=== PATIENT | male | born 1960 | race Caucasian/White ===

== ENCOUNTER 2016-11-15 13:10 | Inpatient (IN) | payer OTHER ==
[2016-11-15 13:29] VITALS: BMI 28.6
[2016-11-15] MEDS ORDERED: FOLIC ACID INJECTION - 1 MG, THIAMINE HCL 100 MG, MULTIVIT INJECTION ADULT 10 ML in SOD... IVPB ONE (13:38)
[2016-11-15] MEDS ORDERED: dilTIAZem HCL 50 MG/10 ML - 10 ML VIAL IVPUSH ONE (13:42)
[2016-11-15] MEDS ORDERED: dilTIAZem HCL 125 MG/25 ML - 25 ML VIAL ONE (13:56)
--- NOTE | 2016-11-15 13:56 | PDOC ---
History of Present Illness <Pavan Stoll - Last Filed: 11/15/16 17:45> <Amna Rivera - Last Filed: 11/15/16 18:26> - General Chief Complaint: Palpitations Stated Complaint: HEART RACING/SHORTNESS OF BREATH - History of Present Illness Initial Comments: 11/15/16 13:57 The patient is a 56 year old male who is a chronic alcoholic who presents to the ED complaining of chest discomfort and palpitations since this morning. He denies any significant chest pain. The patient reports he came to the ED for further evaluation. The patient reports he drinks alcohol daily. The patient denies nausea, vomiting, diarrhea The patient denies shoulder pain, jaw pain, diaphoresis Allergies: NKDA (Amna Rivera) Past History - Past Medical History Cardiac Disorders: (MURMUR) - Surgical History Appendectomy: Yes Cardiac Surgery: Yes - Psycho/Social/Smoking Cessation Hx Suicidal Ideation: No Smoking History: Never smoked Information on smoking cessation initiated: No <Pavan Stoll - Last Filed: 11/15/16 17:45> <Amna Rivera - Last Filed: 11/15/16 18:26> - Past Medical History Allergies/Adverse Reactions: Allergies Allergy/AdvReac Type Severity Reaction Status Date / Time No Known Allergies Allergy Verified 11/15/16 13:29 Home Medications: Ambulatory Orders NK [No Known Home Medication] 11/15/16 Review of Systems <Pavan Stoll - Last Filed: 11/15/16 17:45> - Review of Systems Able to Perform ROS?: Yes <Amna Rivera - Last Filed: 11/15/16 18:26> - Review of Systems Comments:: 11/15/16 13:58 CONSTITUTIONAL: Absent: fever, chills, diaphoresis, generalized weakness, malaise, loss of appetite HEENT: Absent: rhinorrhea, nasal congestion, throat pain, throat swelling, difficulty swallowing, mouth swelling, ear pain, eye pain, visual Changes CARDIOVASCULAR: +Chest discomfort, palpitations. Absent: chest pain, syncope, palpitations, irregular heart rate, lightheadedness, peripheral edema RESPIRATORY: Absent: cough, shortness of breath, dyspnea with exertion, orthopnea, wheezing, stridor, hemoptysis GASTROINTESTINAL: Absent: abdominal pain, abdominal distension, nausea, vomiting, diarrhea, constipation, melena, hematochezia GENITOURINARY: Absent: dysuria, frequency, urgency, hesitancy, hematuria, flank pain, genital pain MUSCULOSKELETAL: Absent: myalgia, arthralgia, joint swelling SKIN: Absent: rash, itching, pallor HEMATOLOGIC/IMMUNOLOGIC: Absent: easy bleeding, easy bruising, lymphadenopathy, frequent infections ENDOCRINE: Absent: unexplained weight gain, unexplained weight loss, heat intolerance, cold intolerance NEUROLOGIC: Absent: headache, focal weakness or paresthesias, dizziness, unsteady gait, seizure, mental status changes, bladder or bowel incontinence PSYCHIATRIC: Absent: anxiety, depression, suicidal or homicidal ideation, hallucinations. (Amna Rivera) *Physical Exam <Pavan Stoll - Last Filed: 11/15/16 17:45> <Amna Rivera - Last Filed: 11/15/16 18:26> - Vital Signs Last Vital Signs Temp Pulse Resp BP Pulse Ox 98 F 112 H 18 98/64 97 11/15/16 13:27 11/15/16 15:00 11/15/16 15:00 11/15/16 15:00 11/15/16 13:27 - Physical Exam Comments: 11/15/16 13:58 GENERAL: Well developed, well nourished. Awake and alert. In no acute distress. HEENT: Normocephalic, atraumatic. PERRLA, EOMI. No conjunctival pallor. Sclera are non- icteric. Moist mucous membranes. Oropharynx is clear. NECK: Supple. Full ROM. No JVD. Carotid pulses 2+ and symmetric, without bruits. No thyromegaly. No lymphadenopathy. CARDIOVASCULAR: +Irregularly irregular, tachycardia. Distal pulses are 2+ and symmetric. PULMONARY: No evidence of respiratory distress. Lungs clear to auscultation bilaterally. No wheezing, rales or rhonchi. ABDOMINAL: Soft. Non-tender. Non-distended. No rebound or guarding. No organomegaly. Normoactive bowel sounds. MUSCULOSKELETAL Normal range of motion at all joints. No bony deformities or tenderness. No CVA tenderness. EXTREMITIES: No cyanosis. No clubbing. No edema. No calf tenderness. SKIN: Warm and dry. Normal capillary refill. No rashes. No jaundice. NEUROLOGICAL: Alert, awake, appropriate. Cranial nerves 2-12 intact. No deficits to light touch and temperature in face, upper extremities and lower extremities. No motor deficits in the in face, upper extremities and lower extremities. Normoreflexic in the upper and lower extremities. Normal speech. Toes are downgoing bilaterally. Gait is normal without ataxia. PSYCHIATRIC: Cooperative. Good eye contact. Appropriate mood and affect. (Amna Rivera) ED Treatment Course - LABORATORY CBC & Chemistry Diagram: 11/15/16 13:50 11/15/16 13:50 <Pavan Stoll - Last Filed: 11/15/16 17:45> - LABORATORY CBC & Chemistry Diagram: 11/15/16 13:50 11/15/16 13:50 <Amna Rivera - Last Filed: 11/15/16 18:26> - ADDITIONAL ORDERS Additional order review: Laboratory Results 11/15/16 11/15/16 11/15/16 13:50 13:50 13:50 INR 1.23 H PTT (Actin FS) 33.1 Sodium Potassium Chloride Carbon Dioxide Anion Gap BUN Creatinine Creat Clearance w eGFR Random Glucose Calcium Total Bilirubin AST ALT Alkaline Phosphatase Creatine Kinase Cancelled Troponin I Cancelled Total Protein Albumin Alcohol, Quantitative < 5.0 11/15/16 13:50 INR PTT (Actin FS) Sodium 140 Potassium 4.2 Chloride 105 Carbon Dioxide 26 Anion Gap 9 BUN 12 Creatinine 1.2 Creat Clearance w eGFR > 60 Random Glucose 135 H Calcium 8.7 Total Bilirubin 0.7 AST 20 ALT 56 Alkaline Phosphatase 79 Creatine Kinase 85 Troponin I < 0.02 Total Protein 7.8 Albumin 3.8 Alcohol, Quantitative 11/15/16 13:50 RBC 4.71 MCV 93.8 MCHC 33.8 RDW 13.7 MPV 9.5 Neutrophils % 51.2 Lymphocytes % 31.9 Monocytes % 15.8 H Eosinophils % 0.5 Basophils % 0.6 - RADIOLOGY Radiograph Interpretation: 11/15/16 18:25 Chest X-Ray There are no prior studies for comparison. There is a prominent knob, prominent hilar markings and large heart. There is no sign of infiltrate or failure. The left costophrenic angle is not fully visualized. The bones and soft tissues are intact. The right angle is sharp. Impression: Large heart. No acute pathology. Slight hilar prominence. Reported By: Wilmer Shaffer MD 11/15/16 [id number] (Amna Rivera) - Medications Given in the ED: ED Medications Discontinued Medications Generic Name Dose Route Start Last Admin Trade Name Delmer PRN Reason Stop Dose Admin Diltiazem HCl 20 mg 11/15/16 13:42 11/15/16 14:01 Cardizem Injection - IVPUSH 11/15/16 13:43 20 mg ONCE ONE Administration Diltiazem HCl 60 mg 11/15/16 15:18 11/15/16 15:27 Cardizem - PO 11/15/16 15:19 60 mg ONCE ONE Administration Folic Acid 1 mg/ Thiamine HCl 1,000 mls @ 125 mls/hr 11/15/16 13:38 11/15/16 14 :46 100 mg/ Multivitamins/Minerals IVPB 11/15/16 21:37 125 mls/hr 10 ml/ Sodium Chloride ONCE ONE Administration *DC/Admit/Observation/Transfer - Discharge Dispostion Admit: Yes <Pavan Stoll - Last Filed: 11/15/16 17:45> <Amna Rivera - Last Filed: 11/15/16 18:26> Diagnosis at time of Disposition: New onset atrial fibrillation - Discharge Dispostion Condition at time of disposition: Stable - Attestations Scribe Attestion: 11/15/16 13:58 Documentation prepared by Amna Rivera, acting as nuclear medicine medical director for Pavan Stoll MD (Amna Rivera)
[2016-11-15 14:03] LABS: BASOPHIL 0.6 % (0-2.0); EOSINOPHIL 0.5 % (0-4.5); MCH 31.7 pg (25.7-33.7); MCHC 33.8 g/dl (32.0-35.9); MEAN CELL VOLUME 93.8 fl (80-96); MEAN PLT VOLUME 9.5 fl (7.5-11.1); NEUTROPHILS 51.2 % (42.8-82.8); PLATELET COUNT 167 K/MM3 (134-434); RDW 13.7 % (11.9-15.9); WHITE BLOOD COUNT 6.7 K/mm3 (4.0-10.0)
[2016-11-15 14:16] LABS: INR 1.23 (0.82-1.09); PROTHROMBIN TIME (PATIENT) 13.6 SEC (9.98-11.88)
[2016-11-15 14:18] LABS: ACTIVATED PTT 33.1 SECONDS (26.9-34.4)
[2016-11-15 14:28] LABS: ALBUMIN 3.8 g/dl (3.4-5.0); ANION GAP 9 (8-16); BILIRUBIN,TOTAL 0.7 mg/dL (0.2-1.0); CALCIUM 8.7 mg/dL (8.5-10.1); CO2 26 mmol/L (21-32); CREATININE 1.2 mg/dL (0.7-1.3); GLUCOSE,RANDOM 135 mg/dL (74-106); SGOT/AST 20 U/L (15-37); SGPT/ALT 56 U/L (12-78); TOT PROT 7.8 g/dl (6.4-8.2)
[2016-11-15 14:30] LABS: ALK PHOS 79 U/L (45-117); TROPONIN I < 0.02 ng/ml (0.00-0.05)
[2016-11-15] MEDS ORDERED: dilTIAZem HCL 60 MG TABLET (FP) PO ONE (15:18)
[2016-11-15] MEDS ORDERED: dilTIAZem HCL 60 MG TABLET (FP) ONE (15:25)
--- NOTE | 2016-11-15 16:23 | HP ---
Addendum entered and electronically signed by Tr Lang RES 11/15/16 17:40 : CHIEF COMPLAINT: palpitations PCP: Dr. Marie HISTORY OF PRESENT ILLNESS: 56 y/o M with PMH of open heart surgery at age 7 presents to ER with c/o first time palpitations and heart racing which started this AM. Pt woke up to urinate and felt his heart racing and felt palpitations. Pt denies any CP, chest pressure, abd pain, N/V/F/C, radiating pain to arms. Pt felt short of breath walking into ER and did feel somewhat faint this AM when he had the palpitations but denies LOC. Tried taking muscle relaxant this AM to help but did not help and does not remember name of med. One month ago he saw his PCP where he c/o chest pressure on left side worse with sitting up and took aleeve ( was supposed to take other NSAID but he did not take it). He saw railway station manager 2 weeks ago who did EKG and echo and pt states he was not told of any abnormalities at the time. Currently still still feels like he is having palpitations and racing heart. Drank 2 beers last night. Drinks usually on fridays and occasionally socially on weekends but not during weekdays. Denies any illicit drug use or any new supplement use. He denies any changes in normal routine recently except for eating less at night. He does not take any meds ( only centrum multivitamin daily). ER course was notable for: (1) cardizem IV and PO (2) (3) Recent Travel: denies PAST MEDICAL HISTORY: none PAST SURGICAL HISTORY: open heart surgery at age 7 for murmur, appendectomy, L foot joint surgery in 1970s Social History: Smoking: never Alcohol: 4-5 beers on Fridays; occasionally on weekends socially Drugs: never Family History: Father - [place] age 53 Allergies No Known Allergies Allergy (Verified 11/15/16 13:29) HOME MEDICATIONS: Home Medications Medication Instructions Recorded NK [No Known Home Medication] 11/15/16 REVIEW OF SYSTEMS CONSTITUTIONAL: weakness Absent: fever, chills, diaphoresis, malaise, loss of appetite, weight change HEENT: Absent: rhinorrhea, nasal congestion, throat pain, throat swelling, difficulty swallowing, mouth swelling, ear pain, eye pain, visual changes CARDIOVASCULAR: palpitations, irregular heart rate Absent: chest pain, syncope, lightheadedness, peripheral edema RESPIRATORY: Absent: cough, shortness of breath, dyspnea with exertion, orthopnea, wheezing, stridor, hemoptysis GASTROINTESTINAL: Absent: abdominal pain, abdominal distension, nausea, vomiting, diarrhea, constipation, melena, hematochezia GENITOURINARY: Absent: dysuria, frequency, urgency, hesitancy, hematuria, flank pain, genital pain MUSCULOSKELETAL: Absent: myalgia, arthralgia, joint swelling, back pain, neck pain SKIN: Absent: rash, itching, pallor HEMATOLOGIC/IMMUNOLOGIC: Absent: easy bleeding, easy bruising, lymphadenopathy, frequent infections ENDOCRINE: Absent: unexplained weight gain, unexplained weight loss, heat intolerance, cold intolerance NEUROLOGIC: Absent: headache, focal weakness or paresthesias, dizziness, unsteady gait, seizure, mental status changes, bladder or bowel incontinence PSYCHIATRIC: Absent: anxiety, depression, suicidal or homicidal ideation, hallucinations. PHYSICAL EXAMINATION Vital Signs - 24 hr 11/15/16 11/15/16 11/15/16 13:27 14:46 15:00 Temperature 98 F Pulse Rate 141 H Pulse Rate [ 112 H Radial] Respiratory 20 18 Rate Blood Pressure 112/63 98/64 Blood Pressure 98/64 [Right Arm] O2 Sat by Pulse 97 Oximetry (%) GENERAL: Awake, alert, and fully oriented, in no acute distress. HEAD: Normal with no signs of trauma. EYES: Pupils equal, round and reactive to light, extraocular movements intact, sclera anicteric, conjunctiva clear. No lid lag. EARS, NOSE, THROAT: Ears normal, nares patent, oropharynx clear without exudates. Moist mucous membranes. NECK: Normal range of motion, supple without lymphadenopathy, JVD, or masses. LUNGS: Breath sounds equal, clear to auscultation bilaterally. No wheezes, and no crackles. No accessory muscle use. HEART: irregularly irregular ABDOMEN: Soft, nontender, not distended, normoactive bowel sounds, no guarding, no rebound, no masses. No hepatomegaly or splenomegaly. MUSCULOSKELETAL: Normal range of motion at all joints. No bony deformities or tenderness. No CVA tenderness. LOWER EXTREMITIES: 2+ pulses, warm, well-perfused. No calf tenderness. No peripheral edema. NEUROLOGICAL: Cranial nerves II-XII intact. Normal speech. Normal gait. PSYCHIATRIC: Cooperative. Good eye contact. Appropriate mood and affect. SKIN: Warm, dry, normal turgor, no rashes or lesions noted. Laboratory Results - last 24 hr 11/15/16 11/15/16 11/15/16 13:50 13:50 13:50 WBC 6.7 RBC 4.71 Hgb 14.9 Hct 44.2 MCV 93.8 MCHC 33.8 RDW 13.7 Plt Count 167 MPV 9.5 Neutrophils % 51.2 Lymphocytes % 31.9 Monocytes % 15.8 H Eosinophils % 0.5 Basophils % 0.6 INR PTT (Actin FS) Sodium 140 Potassium 4.2 Chloride 105 Carbon Dioxide 26 Anion Gap 9 BUN 12 Creatinine 1.2 Creat Clearance w eGFR > 60 Random Glucose 135 H Calcium 8.7 Total Bilirubin 0.7 AST 20 ALT 56 Alkaline Phosphatase 79 Creatine Kinase 85 Troponin I < 0.02 Total Protein 7.8 Albumin 3.8 Alcohol, Quantitative < 5.0 11/15/16 11/15/16 13:50 13:50 WBC RBC Hgb Hct MCV MCHC RDW Plt Count MPV Neutrophils % Lymphocytes % Monocytes % Eosinophils % Basophils % INR 1.23 H PTT (Actin FS) 33.1 Sodium Potassium Chloride Carbon Dioxide Anion Gap BUN Creatinine Creat Clearance w eGFR Random Glucose Calcium Total Bilirubin AST ALT Alkaline Phosphatase Creatine Kinase Cancelled Troponin I Cancelled Total Protein Albumin Alcohol, Quantitative Imaging CXR: no acute pathology, cardiomegaly EKG: afib @ 144 bpm ASSESSMENT/PLAN: 56 y/o M with PMH of open heart surgery at age 7 presents with palpitations, irregular heart rate, weakness. Found to have new onset a-fib. -Palpitations secondary to new onset A-fib w/RVR -Saw cardio (Dr. Blas at [facility]) 2 weeks ago where they did EKG, Echo and as per pt - no abnormalities were reported to him -Pt received cardizem IV 20 mg and cardizem po 60 mg in ER -Pt still in afib w/rvr on monitor -EKG: afib @ 144bpm -cardizem 30 mg po q6h started -cardiology consulted -no echo for now as he had one 2 weeks ago -TFTs ordered -monitor on tele -FEN -no fluids -lytes wnl -regular diet -Dispo: -monitor on tele Original Note: <Tr Lang - Last Filed: 11/15/16 16:23> CHIEF COMPLAINT: palpitations PCP: Dr. Marie HISTORY OF PRESENT ILLNESS: 56 y/o M with PMH of open heart surgery at age 7 presents to ER with c/o first time palpitations and heart racing which started this AM. Pt woke up to urinate and felt his heart racing and felt palpitations. Pt denies any CP, chest pressure, abd pain, N/V/F/C, radiating pain to arms. Pt felt short of breath walking into ER and did feel somewhat faint this AM when he had the palpitations but denies LOC. Tried taking muscle relaxant this AM to help but did not help and does not remember name of med. One month ago he saw his PCP where he c/o chest pressure on left side worse with sitting up and took aleeve ( was supposed to take other NSAID but he did not take it). He saw railway station manager 2 weeks ago who did EKG and echo and pt states he was not told of any abnormalities at the time. Currently still still feels like he is having palpitations and racing heart. Drank 2 beers last night. Drinks usually on fridays and occasionally socially on weekends but not during weekdays. Denies any illicit drug use or any new supplement use. He denies any changes in normal routine recently except for eating less at night. He does not take any meds ( only centrum multivitamin daily). ER course was notable for: (1) (2) (3) Recent Travel: PAST MEDICAL HISTORY: PAST SURGICAL HISTORY: Social History: Smoking: Alcohol: Drugs: Family History: Allergies No Known Allergies Allergy (Verified 11/15/16 13:29) HOME MEDICATIONS: Home Medications Medication Instructions Recorded NK [No Known Home Medication] 11/15/16 REVIEW OF SYSTEMS CONSTITUTIONAL: Absent: fever, chills, diaphoresis, generalized weakness, malaise, loss of appetite, weight change HEENT: Absent: rhinorrhea, nasal congestion, throat pain, throat swelling, difficulty swallowing, mouth swelling, ear pain, eye pain, visual changes CARDIOVASCULAR: Absent: chest pain, syncope, palpitations, irregular heart rate, lightheadedness , peripheral edema RESPIRATORY: Absent: cough, shortness of breath, dyspnea with exertion, orthopnea, wheezing, stridor, hemoptysis GASTROINTESTINAL: Absent: abdominal pain, abdominal distension, nausea, vomiting, diarrhea, constipation, melena, hematochezia GENITOURINARY: Absent: dysuria, frequency, urgency, hesitancy, hematuria, flank pain, genital pain MUSCULOSKELETAL: Absent: myalgia, arthralgia, joint swelling, back pain, neck pain SKIN: Absent: rash, itching, pallor HEMATOLOGIC/IMMUNOLOGIC: Absent: easy bleeding, easy bruising, lymphadenopathy, frequent infections ENDOCRINE: Absent: unexplained weight gain, unexplained weight loss, heat intolerance, cold intolerance NEUROLOGIC: Absent: headache, focal weakness or paresthesias, dizziness, unsteady gait, seizure, mental status changes, bladder or bowel incontinence PSYCHIATRIC: Absent: anxiety, depression, suicidal or homicidal ideation, hallucinations. PHYSICAL EXAMINATION Vital Signs - 24 hr 11/15/16 11/15/16 11/15/16 13:27 14:46 15:00 Temperature 98 F Pulse Rate 141 H Pulse Rate [ 112 H Radial] Respiratory 20 18 Rate Blood Pressure 112/63 98/64 Blood Pressure 98/64 [Right Arm] O2 Sat by Pulse 97 Oximetry (%) GENERAL: Awake, alert, and fully oriented, in no acute distress. HEAD: Normal with no signs of trauma. EYES: Pupils equal, round and reactive to light, extraocular movements intact, sclera anicteric, conjunctiva clear. No lid lag. EARS, NOSE, THROAT: Ears normal, nares patent, oropharynx clear without exudates. Moist mucous membranes. NECK: Normal range of motion, supple without lymphadenopathy, JVD, or masses. LUNGS: Breath sounds equal, clear to auscultation bilaterally. No wheezes, and no crackles. No accessory muscle use. HEART: Regular rate and rhythm, normal S1 and S2 without murmur, rub or gallop. ABDOMEN: Soft, nontender, not distended, normoactive bowel sounds, no guarding, no rebound, no masses. No hepatomegaly or splenomegaly. MUSCULOSKELETAL: Normal range of motion at all joints. No bony deformities or tenderness. No CVA tenderness. UPPER EXTREMITIES: 2+ pulses, warm, well-perfused. No cyanosis. No clubbing. Cap refill <2 seconds. No peripheral edema. LOWER EXTREMITIES: 2+ pulses, warm, well-perfused. No calf tenderness. No peripheral edema. NEUROLOGICAL: Cranial nerves II-XII intact. Normal speech. Normal gait. PSYCHIATRIC: Cooperative. Good eye contact. Appropriate mood and affect. SKIN: Warm, dry, normal turgor, no rashes or lesions noted. Laboratory Results - last 24 hr 11/15/16 11/15/16 11/15/16 13:50 13:50 13:50 WBC 6.7 RBC 4.71 Hgb 14.9 Hct 44.2 MCV 93.8 MCHC 33.8 RDW 13.7 Plt Count 167 MPV 9.5 Neutrophils % 51.2 Lymphocytes % 31.9 Monocytes % 15.8 H Eosinophils % 0.5 Basophils % 0.6 INR PTT (Actin FS) Sodium 140 Potassium 4.2 Chloride 105 Carbon Dioxide 26 Anion Gap 9 BUN 12 Creatinine 1.2 Creat Clearance w eGFR > 60 Random Glucose 135 H Calcium 8.7 Total Bilirubin 0.7 AST 20 ALT 56 Alkaline Phosphatase 79 Creatine Kinase 85 Troponin I < 0.02 Total Protein 7.8 Albumin 3.8 Alcohol, Quantitative < 5.0 11/15/16 11/15/16 13:50 13:50 WBC RBC Hgb Hct MCV MCHC RDW Plt Count MPV Neutrophils % Lymphocytes % Monocytes % Eosinophils % Basophils % INR 1.23 H PTT (Actin FS) 33.1 Sodium Potassium Chloride Carbon Dioxide Anion Gap BUN Creatinine Creat Clearance w eGFR Random Glucose Calcium Total Bilirubin AST ALT Alkaline Phosphatase Creatine Kinase Cancelled Troponin I Cancelled Total Protein Albumin Alcohol, Quantitative ASSESSMENT/PLAN: <Erik Ponce - Last Filed: 11/15/16 17:14> ATTENDING PHYSICIAN STATEMENT I saw and evaluated the patient. I reviewed the resident's note and discussed the case with the resident. I agree with the resident's findings and plan as documented. SUBJECTIVE: seen and evaluated at the bedside OBJECTIVE: resting comfortably, very pleasant, making jokes, HR in the 100's ASSESSMENT AND PLAN: 56 year old man with history of open heart surgery at 7 years of age admitted for Afib with RVR Afib -pt states that he was having palpitations with chest discomfort weeks ago and had an echo and EKG as an outpatient and was told that "everything was fine" -had palpitations today and presented with HR in the 140's with afib on EKG -was treated with IV and PO cardizem and HR is now in the 90's-100's -cardizem 30mg PO Q6 -follow up TFT's -no echo needed as pt just had normal echo withing the past 2 weeks -follow up cardio consult in AM -telemetry monitoring Visit type - Emergency Visit Emergency Visit: Yes Care time: The patient presented to the Emergency Department on the above date and was hospitalized for further evaluation of their emergent condition. - New Patient This patient is new to me today: Yes Date on this admission: 11/15/16 - Critical Care Critical Care patient: No
[2016-11-15] MEDS ORDERED: dilTIAZem HCL 30 MG TABLET (FP) PO SCH (18:00)
[2016-11-15 18:58] LABS: FREE T4 1.22 ng/dl (0.76-1.16); THYROID STIMULATING HORMONE 1.36 uIU/ml (0.358-3.74)
[2016-11-15] MEDS: dilTIAZem HCL 30 MG TABLET (FP) PO SCH (22:18)
[2016-11-15] MEDS ORDERED: HEPARIN NA (PORCINE) 5,000 UNITS/ML 1ML VIAL IVPUSH PRN ×2 (23:39)
[2016-11-15] MEDS ORDERED: HEPARIN NA (PORCINE) 5,000 UNITS/ML 1ML VIAL IVPUSH ONE (23:39)
[2016-11-15] MEDS ORDERED: HEPARIN INFUSION - 500 ML IVPB SCH (23:45)
[2016-11-16] MEDS: SODIUM CHLORIDE 1,000 ML IV SCH (06:36)
[2016-11-16] MEDS ORDERED: dilTIAZem HCL 50 MG/10 ML - 10 ML VIAL IVPUSH ONE (06:45)
[2016-11-16] MEDS ORDERED: METOPROLOL TARTRATE 5 MG/5 ML VIAL ONE (07:14)
[2016-11-16] MEDS ORDERED: METOPROLOL TARTRATE 5 MG/5 ML VIAL IVPUSH ONE (07:15)
[2016-11-16 09:11] LABS: TROPONIN I < 0.02 ng/ml (0.00-0.05)
--- NOTE | 2016-11-16 09:36 | CON.CARD ---
Consult Consult Specialty:: Cardiology Referred by:: Hospitalist Reason for Consultation:: Cardiac evaluation - History of Present Illness Chief Complaint: Palpitations History of Present Illness: Patient is a 56 year old male with underlying history of open heart surgery at age 7 likely due to possible ASD (exact records not available at this time) presents to ED with palpitation which started Suleiman night. He denies chest pain , but complains of shortness of breath with exertion. He denies paroxysmal nocturnal dyspnea or orthopnea. Denies fever or chills. Denies headache or lightheadedness. ECG and monitor reveals atrial fibrillation with rapid ventricular response. Heparin was started last night and patient was given IV Cardizem and Lopressor, but still heart rate is rapid. He had seen a assistant professor of drama 2 weeks ago and an echocardiography was done (result not available) . He drank 2 cans of beer on Thursday and denies illicit drug use or any supplements. Cardiology consultation was called for further evaluation. - History Source History Provided By: Patient, Medical Record Limitations to Obtaining History: No Limitations - Past Medical History Cardio/Vascular: Yes: AFIB ( ? New onset), Other (Post open heart surgery "to patch a hole" - suggest ASD repair) - Past Surgical History Past Surgical History: Yes: Appendectomy Additional Surgical History: Open heart surgery at age 7 - Alcohol/Substance Use Hx Alcohol Use: Yes History of Substance Use: reports: None - Smoking History Smoking history: Never smoked Home Medications - Allergies Allergies/Adverse Reactions: Allergies Allergy/AdvReac Type Severity Reaction Status Date / Time No Known Allergies Allergy Verified 11/15/16 13:29 - Home Medications Home Medications: Ambulatory Orders NK [No Known Home Medication] 11/15/16 Family Disease History - Family Disease History Family Disease History: Heart Disease: Father Review of Systems - Review of Systems Constitutional: denies: Chills, Fever Cardiovascular: reports: Palpitations, Shortness of Breath. denies: Chest Pain Respiratory: reports: SOB on Exertion. denies: Cough, Hemoptysis, Orthopnea, PND Gastrointestinal: denies: Abdominal Pain, Constipation, Diarrhea, Melena, Nausea , Rectal Bleeding, Vomiting Neurological: denies: Dizziness, Headache, Numbness, Seizure, Syncope, Unsteady Gait Vital Signs: Vital Signs Temperature 98.2 F 11/16/16 02:27 Pulse Rate 160 H 11/16/16 07:15 Respiratory Rate 22 11/16/16 06:00 Blood Pressure 100/50 11/16/16 07:15 O2 Sat by Pulse Oximetry (%) 100 11/15/16 21:00 Neck: Yes: Supple Respiratory: Yes: CTA Bilaterally Gastrointestinal: Yes: Normal Bowel Sounds, Soft. No: Tenderness Cardiovascular: Yes: Tachycardia, Pulse Irregular JVD: No Carotid Bruit: No PMI: Non-Displaced Heart Sounds: Yes: S1, S2. No: Gallop Edema: No - Other Data Labs, Other Data: INR, PTT INR 1.23 (0.82-1.09) H 11/15/16 13:50 Troponin, BNP 11/16/16 05:45 Troponin I < 0.02 Laboratory Results - last 24 hr 11/15/16 11/15/16 11/15/16 13:50 13:50 13:50 WBC 6.7 RBC 4.71 Hgb 14.9 Hct 44.2 MCV 93.8 MCHC 33.8 RDW 13.7 Plt Count 167 MPV 9.5 Neutrophils % 51.2 Lymphocytes % 31.9 Monocytes % 15.8 H Eosinophils % 0.5 Basophils % 0.6 INR PTT (Actin FS) Sodium 140 Potassium 4.2 Chloride 105 Carbon Dioxide 26 Anion Gap 9 BUN 12 Creatinine 1.2 Creat Clearance w eGFR > 60 Random Glucose 135 H Calcium 8.7 Total Bilirubin 0.7 AST 20 ALT 56 Alkaline Phosphatase 79 Creatine Kinase 85 Troponin I < 0.02 Total Protein 7.8 Albumin 3.8 TSH Free T4 Alcohol, Quantitative < 5.0 11/15/16 11/15/16 11/15/16 13:50 13:50 13:50 WBC RBC Hgb Hct MCV MCHC RDW Plt Count MPV Neutrophils % Lymphocytes % Monocytes % Eosinophils % Basophils % INR 1.23 H PTT (Actin FS) 33.1 Sodium Potassium Chloride Carbon Dioxide Anion Gap BUN Creatinine Creat Clearance w eGFR Random Glucose Calcium Total Bilirubin AST ALT Alkaline Phosphatase Creatine Kinase Cancelled Troponin I Cancelled Total Protein Albumin TSH 1.36 Free T4 1.22 H Alcohol, Quantitative 11/16/16 11/16/16 05:45 05:45 WBC RBC Hgb Hct MCV MCHC RDW Plt Count MPV Neutrophils % Lymphocytes % Monocytes % Eosinophils % Basophils % INR PTT (Actin FS) 57.3 H D Sodium Potassium Chloride Carbon Dioxide Anion Gap BUN Creatinine Creat Clearance w eGFR Random Glucose Calcium Total Bilirubin AST ALT Alkaline Phosphatase Creatine Kinase 56 Troponin I < 0.02 Total Protein Albumin TSH Free T4 Alcohol, Quantitative Atrial fibrillation with RVR Echo: Pending Problem List - Problems (1) New onset atrial fibrillation Code(s): I48.91 - UNSPECIFIED ATRIAL FIBRILLATION (2) Palpitation Code(s): R00.2 - PALPITATIONS Assessment/Plan 1. Atrial fibrillation with RVR ([id number] score 0) 2. Post open heart surgery likely for ASD repair (exact information is to be obtained) PLAN: 1. Consider Eliquis 5 mg BID for now as short term use. Discontinue Heparin 2. Add Metoprolol 25 mg BID for rate control. Digoxin 0.25 mg IV dose this am 3. If he remains in AF, consider YOUNG +/- synchronized cardioversion. Keep NPO 4. Obtain transthoracic echocardiography from assistant professor of drama office (Dr. Valerio Blas - assistant professor of drama, Dr. Live Marie - [facility] - [facility]) 5. TFT Further plans are to follow Álvaro Robins MD
[2016-11-16] MEDS ORDERED: DIGOXIN 0.5 MG/2 ML AMPUL ONE (09:41)
[2016-11-16] MEDS ORDERED: DIGOXIN 0.5 MG/2 ML AMPUL IVPUSH ONE (09:47)
--- NOTE | 2016-11-16 09:51 | PN ---
Progress Note, Physician - Current Medication List Current Medications: Active Medications Digoxin (Lanoxin Injection -) 0.25 mg IVPUSH ONCE ONE Stop: 11/16/16 09:48 Diltiazem HCl (Cardizem -) 30 mg PO Q6HPO [facility] Heparin Sodium (Porcine) (Heparin -) 5,000 unit IVPUSH PRN PRN Heparin Sodium (Porcine) (Heparin -) 1,000 unit IVPUSH PRN PRN Heparin Sodium/Dextrose (Heparin Infusion -) 500 mls @ 20 mls/hr IVPB TITR [facility] ; 1,000 UNITS/HR PRN Reason: Protocol Last Admin: 11/15/16 23:49 Dose: 20 mls/hr Sodium Chloride (Normal Saline -) 1,000 mls @ 75 mls/hr IV ASDIR [facility] Last Admin: 11/16/16 06:36 Dose: 75 mls/hr - Objective Vital Signs: Vital Signs Temperature 98.2 F 11/16/16 02:27 Pulse Rate 160 H 11/16/16 07:15 Respiratory Rate 22 11/16/16 06:00 Blood Pressure 100/50 11/16/16 07:15 O2 Sat by Pulse Oximetry (%) 100 11/15/16 21:00 Constitutional: Yes: Well Nourished, No Distress, Calm Eyes: Yes: WNL, Conjunctiva Clear HENT: Yes: WNL, Atraumatic, Normocephalic Neck: Yes: WNL, Supple, Trachea Midline Cardiovascular: Yes: Tachycardia. No: Regular Rate and Rhythm Respiratory: Yes: WNL, Regular, CTA Bilaterally Gastrointestinal: Yes: WNL, Normal Bowel Sounds Musculoskeletal: Yes: WNL Extremities: Yes: WNL Edema: No Integumentary: Yes: WNL Neurological: Yes: WNL, Alert, Oriented ...Motor Strength: WNL Psychiatric: Yes: WNL Labs: INR, PTT INR 1.23 (0.82-1.09) H 11/15/16 13:50 Impression/Plan Impression/Plan: 56 year old man with history of open heart surgery at 7 years of age admitted for Afib with RVR Afib -pt states that he was having palpitations with chest discomfort weeks ago and had an echo and EKG as an outpatient and was told that "everything was fine" -had palpitations today and presented with HR in the 140's with afib on EKG -was treated with IV and PO cardizem in ED and HR went down to the 90's-100's -started cardizem 30mg PO Q6 but HR increased again overnight -being given IV digoxin by cardio attending as BP is in the 90's -TFT's show very mildly elevated T4 but TSH is normal making this clinically insignificant -no echo needed as pt just had normal echo withing the past 2 weeks; obtain via fax -telemetry monitoring Visit type - Emergency Visit Emergency Visit: Yes ED Registration Date: 11/15/16 Care time: The patient presented to the Emergency Department on the above date and was hospitalized for further evaluation of their emergent condition. - New Patient This patient is new to me today: No - Critical Care Critical Care patient: No - Discharge Referral Referred to [facility] Med P.C.: No
[2016-11-16] MEDS: METOPROLOL TARTRATE 25 MG TABLET (FP) PO SCH ×2 (10:52→21:12)
[2016-11-16] MEDS: APIXABAN 5 MG TABLET PO SCH ×2 (10:52→21:11)
[2016-11-16] MEDS: dilTIAZem HCL 30 MG TABLET (FP) PO SCH ×2 (13:15→18:09)
[2016-11-17] MEDS: dilTIAZem HCL 30 MG TABLET (FP) PO SCH ×3 (00:26→13:08)
[2016-11-17] MEDS: SODIUM CHLORIDE 1,000 ML IV SCH (07:04)
[2016-11-17] MEDS ORDERED: HEPARIN INFUSION - 500 ML IVPB SCH (09:00)
[2016-11-17 09:12] LABS: URINE APPEARANCE CLEAR; URINE BILIRUBIN NEGATIVE (NEGATIVE); URINE BLOOD NEGATIVE (NEGATIVE); URINE COLOR LTYELLOW; URINE GLUCOSE (UA) NEGATIVE (NEGATIVE); URINE KETONE NEGATIVE (NEGATIVE); URINE LEUK ESTERASE NEGATIVE (NEGATIVE); URINE NITRITE NEGATIVE (NEGATIVE); URINE PROTEIN NEGATIVE (NEGATIVE); URINE UROBILINOGEN NEGATIVE E.U./dl (0.2-1.0)
[2016-11-17] MEDS: APIXABAN 5 MG TABLET PO SCH (09:34)
[2016-11-17] MEDS: METOPROLOL TARTRATE 25 MG TABLET (FP) PO SCH (09:34)
--- NOTE | 2016-11-17 09:42 | PN ---
Progress Note, Physician Chief Complaint: Not in distress Currently in sinus rhythm History of Present Illness: Patient was seen and examined. Awake and alert. Chart was reviewed Denies chest pain, SOB or palpitations. Sinus rhythm - Current Medication List Current Medications: Active Medications Apixaban (Eliquis -) 5 mg PO BID [facility] Last Admin: 11/17/16 09:34 Dose: 5 mg Diltiazem HCl (Cardizem -) 30 mg PO Q6HPO [facility] Last Admin: 11/17/16 06:39 Dose: Not Given Sodium Chloride (Normal Saline -) 1,000 mls @ 75 mls/hr IV ASDIR [facility] Last Admin: 11/17/16 07:04 Dose: Not Given Metoprolol Tartrate (Lopressor -) 25 mg PO BID [facility] Last Admin: 11/17/16 09:34 Dose: 25 mg - Objective Vital Signs: Vital Signs Temperature 98.2 F 11/17/16 08:00 Pulse Rate 72 11/17/16 08:00 Respiratory Rate 14 11/17/16 08:00 Blood Pressure 118/72 11/17/16 08:00 O2 Sat by Pulse Oximetry (%) 96 11/16/16 21:00 Neck: Yes: Supple Cardiovascular: Yes: Regular Rate and Rhythm, S1, S2 Respiratory: Yes: CTA Bilaterally Gastrointestinal: Yes: Normal Bowel Sounds, Soft. No: Tenderness Edema: No Additional Findings/Remarks: - Review of Systems Constitutional: denies: Chills, Fever Cardiovascular: denies: Shortness of Breath - improved. denies: Chest Pain, Palpitations Respiratory: denies: Cough, Hemoptysis, Orthopnea, PND Gastrointestinal: denies: Nausea. denies: Abdominal Pain, Constipation, Diarrhea, denies: Melena, Rectal Bleeding, Vomiting Neurological: denies: Dizziness, Headache, Seizure, Syncope Labs: Problem List - Problems (1) New onset atrial fibrillation Code(s): I48.91 - UNSPECIFIED ATRIAL FIBRILLATION (2) Palpitation Code(s): R00.2 - PALPITATIONS Assessment/Plan 1. Atrial fibrillation with RVR ([id number] score 0) now converted to sinus rhythm 2. Post open heart surgery likely for ASD repair (exact information is to be obtained) PLAN: 1. In view of [id number] score of 0, would treat him with ASA 81 mg once a day and discontinue Eliquis as he remains in sinus rhythm 2. Continue Metoprolol 25 mg BID for rate control. 3. No need for YOUNG and synchronized cardioversion 4. Obtain transthoracic echocardiography from conversion developer office (Dr. Valerio Blas - conversion developer, Dr. Live Marie - D - [facility]) Ambulate and if stable discharge home. Discussed with Dr. Ponce Further plans are to follow Álvaro Robins MD
[2016-11-17 14:45] VITALS: BP 106/64; PULSE 60; TEMP 98.4
--- NOTE | 2016-11-17 15:49 | DS ---
Physical Examination Vital Signs: Vital Signs Temperature 98.4 F 11/17/16 14:43 Pulse Rate 60 11/17/16 14:43 Respiratory Rate 16 11/17/16 14:43 Blood Pressure 106/64 11/17/16 14:43 O2 Sat by Pulse Oximetry (%) 95 11/17/16 09:00 Discharge Summary Reason For Visit: NEW ONSET ATRIAL FIBRILLATION Current Active Problems New onset atrial fibrillation (Acute) Palpitation (Acute) Hospital Course: 56 y/o M with PMH of open heart surgery at age 7 presents to ER with c/o first time palpitations and heart racing which started this AM. Pt woke up to urinate and felt his heart racing and felt palpitations. Pt denies any CP, chest pressure, abd pain, N/V/F/C, radiating pain to arms. Pt felt short of breath walking into ER and did feel somewhat faint this AM when he had the palpitations but denies LOC. Tried taking muscle relaxant this AM to help but did not help and does not remember name of med. One month ago he saw his PCP where he c/o chest pressure on left side worse with sitting up and took aleeve ( was supposed to take other NSAID but he did not take it). He saw potato chip sorter 2 weeks ago who did EKG and echo and pt states he was not told of any abnormalities at the time. Currently still still feels like he is having palpitations and racing heart. Drank 2 beers last night. Drinks usually on fridays and occasionally socially on weekends but not during weekdays. Denies any illicit drug use or any new supplement use. He denies any changes in normal routine recently except for eating less at night. He does not take any meds ( only centrum multivitamin daily). Pt was admitted for Afib with RVR Afib -pt states that he was having palpitations with chest discomfort weeks ago and had an echo and EKG as an outpatient and was told that "everything was fine" -had palpitations today and presented with HR in the 140's with afib on EKG -was treated with IV and PO cardizem in ED and HR went down to the 90's-100's -started cardizem 30mg PO Q6 but HR increased again overnight -was given IV digoxin by cardio attending as BP is in the 90's -TFT's show very mildly elevated T4 but TSH is normal making this clinically insignificant -no echo needed as pt just had normal echo withing the past 2 weeks; obtain via fax -was on cardizem, and metoprolol as per cardio recs but converted back to NSR on telemetry monitoring and has been in the 60's ever since -discussed case with potato chip sorter and plan is now for discharge on metoprolol and ASA I spent greater than 40 minutes preparing this discharge Condition: Stable - Instructions Referrals: Álvaro Robins MD [Staff Physician] - 2 Weeks Disposition: HOME - Home Medications Comprehensive Discharge Medication List: Ambulatory Orders Aspirin Coated [Ecotrin -] 81 mg PO DAILY #30 tablet.ec 11/17/16 Metoprolol Tartrate [Lopressor -] 25 mg PO BID #60 tablet 11/17/16 This patient is new to me today: No Emergency Visit: Yes ED Registration Date: 11/15/16 Care time: The patient presented to the Emergency Department on the above date and was hospitalized for further evaluation of their emergent condition. Critical Care patient: No - Discharge Referral Referred to [facility] Med P.C.: No
--- NOTE | 2016-11-17 16:24 | EKG ---
Test Reason : Blood Pressure : / mmHG Vent. Rate : 144 BPM Atrial Rate : 131 BPM P-R Int : 000 ms QRS Dur : 084 ms QT Int : 276 ms P-R-T Axes : 000 013 009 degrees QTc Int : 427 ms ATRIAL FIBRILLATION WITH RAPID VENTRICULAR RESPONSE ABNORMAL ECG NO PREVIOUS ECGS AVAILABLE Confirmed by JOI REAL MD ([id number]) on 11/17/2016 4:23:28 PM Referred By: Confirmed By:JOI REAL MD
== END 2016-11-17 17:08 | disposition home or self-care (01) | DRG 310 ==
LOC: JER 13:10 → JERBED 17:45 → J4W 19:05
PROVIDERS: ADMIT Internal Medicine; ATTEND Internal Medicine
DX: I48.91 Unspecified atrial fibrillation (principal)
CPT/HCPCS: 36415; 71010-TC; 80053; 80307; 81003; 82550; 84439; 84443; 84481; 84484; 85025; 85610; 85730; 93005; 93010; 99284-25; J1644

== ENCOUNTER 2017-12-22 16:27 | Inpatient (IN) | payer OTHER ==
[2017-12-22] MEDS ORDERED: SODIUM CHLORIDE 0.9% 1000 ML INFUS.BAG IV STA (17:15)
[2017-12-22] MEDS ORDERED: ACETAMINOPHEN 500 MG TABLET (FP) PO ONE (17:17)
[2017-12-22] MEDS ORDERED: ACETAMINOPHEN 325 MG TABLET (FP) ONE (17:58)
[2017-12-22 18:00] LABS: INR 1.32 (0.82-1.09); PROTHROMBIN TIME (PATIENT) 14.9 SEC (9.98-11.88)
[2017-12-22 18:03] LABS: ACTIVATED PTT 26.6 SECONDS (26.9-34.4)
[2017-12-22 18:07] LABS: HEMOGLOBIN 13.4 GM/dL (11.7-16.9); MCH 31.9 pg (25.7-33.7); MCHC 34.3 g/dl (32.0-35.9); MEAN CELL VOLUME 92.9 fl (80-96); MEAN PLT VOLUME 9.4 fl (7.5-11.1); PLATELET COUNT 186 K/MM3 (134-434); RBC 4.19 M/mm3 (4.00-5.60); WHITE BLOOD COUNT 13.1 K/mm3 (4.0-10.0)
[2017-12-22 19:03] LABS: ALBUMIN 3.6 g/dl (3.4-5.0); ANION GAP 9 (8-16); BILIRUBIN,TOTAL 0.8 mg/dL (0.2-1.0); BLOOD UREA NITROGEN 17 mg/dL (7-18); CALCIUM 8.4 mg/dL (8.5-10.1); CHLORIDE 106 mmol/L (98-107); CO2 24 mmol/L (21-32); CREATININE 1.1 mg/dL (0.7-1.3); GLUCOSE,RANDOM 135 mg/dL (74-106); SGOT/AST 14 U/L (15-37); SGPT/ALT 36 U/L (12-78); SODIUM 139 mmol/L (136-145)
[2017-12-22 19:04] LABS: ALK PHOS 93 U/L (45-117)
--- NOTE | 2017-12-22 19:36 | PDOC ---
History of Present Illness - General History Source: Patient Exam Limitations: No Limitations - History of Present Illness Initial Comments: 12/22/17 19:45 The patient is a 57 year old male, with a significant past medical history of CAD s/p open heart surgery in 1966, atrial fibrillation, who presents to the emergency department with, approx. 2 days of non productive cough, congestion, rhinorrhea, rigors, subjective fever and chills. The patient states a sudden onset of symptoms two days ago while he was at work around 10pm. The patient states he left work that night, went home and had some tea and 2 Aleve for the cold-like symptoms with minimal relief. The patient states he has also been experiencing increased urinary urgency in the past few days. He denies any recent headache or dizziness. He denies any recent nausea, vomit, diarrhea or constipation. He denies any recent chest pain or shortness of breath. He denies any recent dysuria, frequency, or hematuria. Allergies: NKA Past surgical history: open heart surgery in 1966 Social History: Daily EtOH use. Nonsmoker. Denies recreational drug use. Primary Care Physician: Dr. Nixon ([place]) <Jalen More - Last Filed: 12/22/17 20:08> <Shantel Lara - Last Filed: 12/23/17 02:02> - General Chief Complaint: Cold Symptoms Stated Complaint: FLU LIKE SYMPTOMS Time Seen by Provider: 12/22/17 16:33 Past History <Jalen More - Last Filed: 12/22/17 20:08> - Past Medical History Cardiac Disorders: Yes (MURMUR) COPD: No - Surgical History Appendectomy: Yes (1990) Cardiac Surgery: Yes (OPEN HEART AGE 7) Orthopedic Surgery: Yes (LT FOOT 1972) - Suicide/Smoking/Psychosocial Hx Smoking History: Never smoked Have you smoked in the past 12 months: No Information on smoking cessation initiated: No Hx Alcohol Use: No Drug/Substance Use Hx: No Substance Use Type: None Hx Substance Use Treatment: No <Shantel Lara - Last Filed: 12/23/17 02:02> - Past Medical History Allergies/Adverse Reactions: Allergies Allergy/AdvReac Type Severity Reaction Status Date / Time No Known Allergies Allergy Verified 12/22/17 16:43 Home Medications: Ambulatory Orders NK [No Known Home Medication] 12/22/17 Review of Systems - Review of Systems Comments:: 12/22/17 19:47 CONSTITUTIONAL: Present: +Fever. +Chills. +Rigors. EYES: Absent: visual changes ENT: Present: +Congestion. +Rhinorrhea. Absent: ear pain, no sore throat CARDIOVASCULAR: Absent: chest pain, no palpitations RESPIRATORY: Present: +Cough Absent: no SOB GI: Absent: abdominal pain, no nausea, no vomiting, no constipation, no diarrhea GENITOURINARY: Present: +Urgency Absent: dysuria, no frequency, no hematuria MUSKULOSKELETAL: Absent: back pain, no arthralgia, no myalgia SKIN: Absent: rash NEURO: Absent: headache <Jalen More - Last Filed: 12/22/17 20:08> *Physical Exam - Vital Signs Last Vital Signs Temp Pulse Resp BP Pulse Ox 102.8 F H 132 H 16 103/62 100 12/22/17 16:30 12/22/17 16:30 12/22/17 16:30 12/22/17 16:30 12/22/17 16:30 - Physical Exam Comments: 12/22/17 19:48 GENERAL: +Febrile. Well developed, well nourished. Awake and alert. No acute distress. HEENT: Normocephalic, atraumatic. PERRLA, EOMI. No conjunctival pallor. Sclera are non- icteric. Moist mucous membranes. Oropharynx is clear. NECK: Supple. Full ROM. No JVD. Carotid pulses 2+ and symmetric, without bruits. No thyromegaly. No lymphadenopathy. CARDIOVASCULAR: +Tachycardia. Regular rhythm. No murmurs, rubs, or gallops. Distal pulses are 2 + and symmetric. PULMONARY: +Bibasilar rales at the lower bases. Patient is speaking in full sentences. ABDOMINAL: Soft. Non-tender. Non-distended. No rebound or guarding. No organomegaly. Normoactive bowel sounds. MUSCULOSKELETAL Normal range of motion at all joints. No bony deformities or tenderness. No CVA tenderness. EXTREMITIES: No cyanosis. No clubbing. No edema. No calf tenderness. SKIN: Warm and dry. Normal capillary refill. No rashes. No jaundice. NEUROLOGICAL: Alert, awake, appropriate. Cranial nerves 2-12 intact. No deficits to light touch and temperature in face, upper extremities and lower extremities. No motor deficits in the in face, upper extremities and lower extremities. Normoreflexic in the upper and lower extremities. Normal speech. Toes are down- going bilaterally. Gait is normal without ataxia. PSYCHIATRIC: Cooperative. Good eye contact. Appropriate mood and affect. <Jalen More - Last Filed: 12/22/17 20:08> - Vital Signs Last Vital Signs Temp Pulse Resp BP Pulse Ox 102.8 F H 132 H 16 103/62 100 12/22/17 16:30 12/22/17 16:30 12/22/17 16:30 12/22/17 16:30 12/22/17 16:30 <MarcoRomanjoe Reyesh - Last Filed: 12/23/17 02:02> ED Treatment Course - LABORATORY CBC & Chemistry Diagram: 12/22/17 17:29 12/22/17 17:29 - ADDITIONAL ORDERS Additional order review: Laboratory Results 12/22/17 12/22/17 12/22/17 17:29 17:29 17:29 PT with INR 14.90 H INR 1.32 H PTT (Actin FS) 26.6 L D Sodium 139 Potassium 4.0 Chloride 106 Carbon Dioxide 24 Anion Gap 9 BUN 17 D Creatinine 1.1 Creat Clearance w eGFR > 60 Random Glucose 135 H Lactic Acid 2.4 H* Calcium 8.4 L Total Bilirubin 0.8 AST 14 L D ALT 36 D Alkaline Phosphatase 93 Total Protein 7.0 Albumin 3.6 12/22/17 18:53 Influenza Types A,B Antigen (MIKAYLA) - Final Nasopharyngeal Swab - Final 12/22/17 17:29 RBC 4.19 MCV 92.9 MCHC 34.3 RDW 14.0 MPV 9.4 Neutrophils % No Result Required. Lymphocytes % No Result Required. - RADIOLOGY Radiograph Interpretation: 12/22/17 20:08 EXAM#: TYPE/EXAM: RESULT: [id number] RAD/CHEST X-RAY PORTABLE* Indication: Sepsis. Technique: Single AP portable view of the chest. Comparison: 11/15/2016 chest x-ray. Findings: There are shallow inspiration with low lung volumes resulting in crowding of the pulmonary vasculature and bibasilar subsegmental atelectasis. The cardiomediastinal silhouette is magnified due to AP portable technique, but unchanged in size from 11/15/2016. Median sternotomy wires are noted. There is no sizable pleural effusion or definable pneumothorax. No abnormal deviation of the trachea. Impression: Shallow aspiration with low lung volumes and bibasilar subsegmental atelectasis. Reported By: Rica Moore DO - Medications Given in the ED: ED Medications Discontinued Medications Generic Name Dose Route Start Last Admin Trade Name Freq PRN Reason Stop Dose Admin Acetaminophen 975 mg 12/22/17 17:17 12/22/17 17:59 Tylenol - PO 12/22/17 17:18 975 mg ONCE ONE Administration Sodium Chloride 3,130 ml 12/22/17 17:15 12/22/17 17:30 Normal Saline - 30 ml/kg (3130 ml) 12/22/17 17:16 3,130 ml IV Administration ONCE STA <Jalen More - Last Filed: 12/22/17 20:08> - LABORATORY CBC & Chemistry Diagram: 12/22/17 17:29 12/22/17 17:29 - ADDITIONAL ORDERS Additional order review: Laboratory Results 12/22/17 12/22/17 12/22/17 17:29 17:29 17:29 PT with INR 14.90 H INR 1.32 H PTT (Actin FS) 26.6 L D Sodium 139 Potassium 4.0 Chloride 106 Carbon Dioxide 24 Anion Gap 9 BUN 17 D Creatinine 1.1 Creat Clearance w eGFR > 60 Random Glucose 135 H Lactic Acid 2.4 H* Calcium 8.4 L Total Bilirubin 0.8 AST 14 L D ALT 36 D Alkaline Phosphatase 93 Total Protein 7.0 Albumin 3.6 12/22/17 18:53 Influenza Types A,B Antigen (MIKAYLA) - Final Nasopharyngeal Swab - Final 12/22/17 17:29 RBC 4.19 MCV 92.9 MCHC 34.3 RDW 14.0 MPV 9.4 Neutrophils % No Result Required. Lymphocytes % No Result Required. - RADIOLOGY Radiology Studies Ordered: Category Date Time Status CHEST X-RAY PORTABLE* [RAD] Stat Radiology 12/22/17 17:16 Completed - Medications Given in the ED: ED Medications Discontinued Medications Generic Name Dose Route Start Last Admin Trade Name Freq PRN Reason Stop Dose Admin Acetaminophen 975 mg 12/22/17 17:17 12/22/17 17:59 Tylenol - PO 12/22/17 17:18 975 mg ONCE ONE Administration Sodium Chloride 3,130 ml 12/22/17 17:15 12/22/17 17:30 Normal Saline - 30 ml/kg (3130 ml) 12/22/17 17:16 3,130 ml IV Administration ONCE STA <Shantel Lara - Last Filed: 12/23/17 02:02> *DC/Admit/Observation/Transfer - Attestations Scribe Attestion: 12/22/17 19:48 Documentation prepared by Jalen More, acting as pediatrician/medical doctor for Shantel Lara MD. <Jalen More - Last Filed: 12/22/17 20:08> - Discharge Dispostion Admit: Yes <Shantel Lara - Last Filed: 12/23/17 02:02> Diagnosis at time of Disposition: UTI (urinary tract infection) Qualifiers: Urinary tract infection type: site unspecified Hematuria presence: without hematuria Qualified Code(s): N39.0 - Urinary tract infection, site not specified Fever Qualifiers: Fever type: due to other condition Qualified Code(s): R50.81 - Fever presenting with conditions classified elsewhere
[2017-12-22 20:25] LABS: URINE APPEARANCE SLCLOUDY; URINE BILIRUBIN NEGATIVE (<2.0 mg/dL); URINE BLOOD 1+ (NEGATIVE); URINE COLOR DKYELLOW; URINE GLUCOSE (UA) 2+ (NEGATIVE); URINE KETONE TRACE (NEGATIVE); URINE NITRITE POSITIVE (NEGATIVE); URINE UROBILINOGEN NEGATIVE mg/dL (0.2-1.0)
[2017-12-22 20:28] LABS: URINE LEUK ESTERASE 2+ (NEGATIVE); URINE PROTEIN 1+ (NEGATIVE)
[2017-12-22 20:30] LABS: EPI CELLS RARE /HPF (FEW); URINE BACTERIA RARE /hpf (NONE SEEN); URINE MUCUS RARE
[2017-12-22 21:45] LABS: PLATELET ESTIMATE ADEQUATE
[2017-12-22 22:00] LABS: URINE APPEARANCE SLCLOUDY; URINE BILIRUBIN NEGATIVE (<2.0 mg/dL); URINE BLOOD 1+ (NEGATIVE); URINE COLOR DKYELLOW; URINE GLUCOSE (UA) 2+ (NEGATIVE); URINE KETONE TRACE (NEGATIVE); URINE NITRITE POSITIVE (NEGATIVE); URINE UROBILINOGEN NEGATIVE mg/dL (0.2-1.0)
[2017-12-22 22:02] LABS: URINE LEUK ESTERASE 2+ (NEGATIVE); URINE PROTEIN 1+ (NEGATIVE)
[2017-12-22 22:04] LABS: EPI CELLS RARE /HPF (FEW); URINE BACTERIA RARE /hpf (NONE SEEN); URINE MUCUS RARE
[2017-12-22 22:35] LABS: VENOUS PC02 30.6 mmHg (38-52); VENOUS PH 7.5 (7.32-7.42)
[2017-12-22 22:36] LABS: VENOUS PO2 45.3 mmHg (28-48)
--- NOTE | 2017-12-22 22:40 | PN ---
Teaching Attending Note Name of Resident: Faraz Balderas ATTENDING PHYSICIAN STATEMENT I saw and evaluated the patient. I reviewed the resident's note and discussed the case with the resident. I agree with the resident's findings and plan as documented. SUBJECTIVE: 56 yo M with pmhx. of open heart sx. at age 7, appendectomy, L. gerson joint sx. 1970s, admitted a year ago for new afib who presents with s day hx. of non- productive cough, congestion and rhinorhea, subjective fevers and chills. States he has had urinary urgency too, for past several days. No increased frequency or dysuria. No Hematouria. States he had not recieved his flu shot this year. OBJECTIVE: Physical: VS: Vital Signs Period Temp Pulse Resp BP Sys/Moeller Pulse Ox Last 24 Hr 102.8 F 132 16 103/62 100 GEN: NAD, Resting in bed, AA0X3 HEENT: NCAT, PERRL, Throat without erythema or exudates CARD: RRR S1, S2 RESP: CTAB ABD: BSx4, NTD to palpation EXT: - C/C/E CBCD WBC 13.1 K/mm3 (4.0-10.0) H D 12/22/17 17:29 RBC 4.19 M/mm3 (4.00-5.60) 12/22/17 17:29 Hgb 13.4 GM/dL (11.7-16.9) D 12/22/17 17:29 Hct 39.0 % (35.4-49) 12/22/17 17:29 MCV 92.9 fl (80-96) 12/22/17 17:29 MCHC 34.3 g/dl (32.0-35.9) 12/22/17 17:29 RDW 14.0 % (11.9-15.9) 12/22/17 17:29 Plt Count 186 K/MM3 (134-434) 12/22/17 17:29 MPV 9.4 fl (7.5-11.1) 12/22/17 17:29 CMP Sodium 139 mmol/L (136-145) 12/22/17 17:29 Potassium 4.0 mmol/L (3.5-5.1) 12/22/17 17:29 Chloride 106 mmol/L (98-107) 12/22/17 17:29 Carbon Dioxide 24 mmol/L (21-32) 12/22/17 17:29 Anion Gap 9 (8-16) 12/22/17 17:29 BUN 17 mg/dL (7-18) D 12/22/17 17:29 Creatinine 1.1 mg/dL (0.7-1.3) 12/22/17 17:29 Creat Clearance w eGFR > 60 (>60) 12/22/17 17:29 Random Glucose 135 mg/dL (74-106) H 12/22/17 17:29 Calcium 8.4 mg/dL (8.5-10.1) L 12/22/17 17:29 Total Bilirubin 0.8 mg/dL (0.2-1.0) 12/22/17 17:29 AST 14 U/L (15-37) L D 12/22/17 17:29 ALT 36 U/L (12-78) D 12/22/17 17:29 Alkaline Phosphatase 93 U/L (45-117) 12/22/17 17:29 Total Protein 7.0 g/dl (6.4-8.2) 12/22/17 17:29 Albumin 3.6 g/dl (3.4-5.0) 12/22/17 17:29 CARDIAC ENZYMES Troponin I < 0.02 ng/ml (0.00-0.05) 12/22/17 17:30 Home Medications Medication Instructions Recorded NK [No Known Home Medication] 12/22/17 CXR: Bibasilar Atelectasis ASSESSMENT AND PLAN: 56 yo M with pmhx. of open heart sx. at age 7, appendectomy, L. foot joint sx. 1970s, admitted a year ago for new afib who presents with s day hx. of non- productive cough, congestion and rhinorhea, being admitted for Sepsis 1.) Sepsis - Most likely due to UTI - Cannot rule out Influenza - Pt. refusing Zoraida- Flu - Ceftriaxone - Albert cx - IVF 2.) Hx. OF AFIB - In SR - Not on any home any home meds, by choice 3.) Dvt Ppx - Scds Place in Med-Sx
--- NOTE | 2017-12-22 23:06 | HP ---
CHIEF COMPLAINT: chills, rigors x 2 days PCP: HISTORY OF PRESENT ILLNESS: 57 y/o M with PMH CAD s/p open heart surgery (for ?ASD/VSD in 1966), atrial fibrillation (was on blood thinner for 5 months, does not know name), who presents to the ED c/o chills over the past two days. As per pt, last night at 10 PM he went into work and developed sudden chills and rigors. When patient got home an hour later, he drank hot tea and had two alleves and went to sleep. He was diaphoretic all night. When he woke up this AM at 9AM, he drank another tea, took two more alleves and took a hot shower which alleviated his sx temporarily. Pt went to work at 3PM and instantly felt ill, as his chills and rigors suddenly recurred. During this time, pt also endorsed dysuria and increased urinary frequency. 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 He denies LOPEZ, cough, SOB or chest pain, or changes in bowel function. History is + sick contacts through his job. Pt did not have the flu shot. ER course was notable for: (1) Levaquin 500mg x 1 (2) Temp 102.8F (3) Tachy 132 HR Recent Travel: none PAST MEDICAL HISTORY: as above PAST SURGICAL HISTORY: ruptured appendix (1990), s/p open heart surgery (for ? 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 counseled on importance of cutting back, expressed understanding. Drugs: denies Family History: father- from [place] at age 53 mother - SDH sister- HTN Allergies No Known Allergies Allergy (Verified 12/22/17 16:43) HOME MEDICATIONS: Home Medications Medication Instructions Recorded NK [No Known Home Medication] 12/22/17 -Only takes multivitamins at home; was d/c on numerous medications however does not take as per pt choice -No longer on blood thinner Was discharged in October with the following but does not take them: Aspirin Coated [Ecotrin -] 81 mg PO DAILY #30 tablet.ec 11/17/16 Metoprolol Tartrate [Lopressor -] 25 mg PO BID #60 tablet 11/17/16 REVIEW OF SYSTEMS CONSTITUTIONAL: +chills, diaphoresis Absent: fever, generalized weakness, malaise, loss of appetite, weight change HEENT: Absent: rhinorrhea, nasal congestion, throat pain, throat swelling, difficulty swallowing, mouth swelling, ear pain, eye pain, visual changes CARDIOVASCULAR: Absent: chest pain, syncope, palpitations, irregular heart rate, lightheadedness , peripheral edema RESPIRATORY: Absent: cough, shortness of breath, dyspnea with exertion, orthopnea, wheezing, stridor, hemoptysis GASTROINTESTINAL: Absent: abdominal pain, abdominal distension, nausea, vomiting, diarrhea, constipation, melena, hematochezia GENITOURINARY: +dysuria, urinary frequency Absent: urgency, hesitancy, hematuria, flank pain, genital pain MUSCULOSKELETAL: Absent: myalgia, arthralgia, joint swelling, back pain, neck pain SKIN: Absent: rash, itching, pallor HEMATOLOGIC/IMMUNOLOGIC: Absent: easy bleeding, easy bruising, lymphadenopathy, frequent infections ENDOCRINE: Absent: unexplained weight gain, unexplained weight loss, heat intolerance, cold intolerance NEUROLOGIC: Absent: headache, focal weakness or paresthesias, dizziness, unsteady gait, seizure, mental status changes, bladder or bowel incontinence PSYCHIATRIC: Absent: anxiety, depression, suicidal or homicidal ideation, hallucinations. PHYSICAL EXAMINATION Vital Signs 12/22/17 16:30 Temperature 102.8 F H Pulse Rate 132 H Respiratory 16 Rate Blood Pressure 103/62 O2 Sat by Pulse 100 Oximetry (%) GENERAL: Resting comfortably. Awake, alert, and fully oriented, in no acute distress. HEAD: Normal with no signs of trauma. EYES: Pupils equal, round and reactive to light, extraocular movements intact, sclera anicteric, conjunctiva clear. EARS, NOSE, THROAT: Ears normal, nares patent, oropharynx clear without exudates. Moist mucous membranes. NECK: Normal range of motion, supple LUNGS: Breath sounds equal, clear to auscultation bilaterally. No wheezes, and no crackles. No accessory muscle use. HEART: Regular rate and rhythm, normal S1 and S2 without murmur, rub or gallop. ABDOMEN: Soft, nontender, not distended, normoactive bowel sounds, no guarding, no rebound, no masses. MUSCULOSKELETAL: Normal range of motion at all joints. No bony deformities or tenderness. No CVA tenderness. UPPER EXTREMITIES: 2+ radial pulses, warm, well-perfused. No cyanosis. No clubbing. LOWER EXTREMITIES: 2+ posterior tibial pulses, warm, well-perfused. No calf tenderness. No peripheral edema. NEUROLOGICAL: Cranial nerves II-XII intact. Normal speech. Normal gait. PSYCHIATRIC: Cooperative. Laboratory Results - last 24 hr 12/22/17 12/22/17 12/22/17 17:29 17:29 17:29 WBC 13.1 H D RBC 4.19 Hgb 13.4 D Hct 39.0 MCV 92.9 MCH 31.9 MCHC 34.3 RDW 14.0 Plt Count 186 MPV 9.4 Total Counted 100 Neutrophils % No Result Required. Neutrophils % (Manual) 87.0 H Band Neutrophils % 8.0 Lymphocytes % No Result Required. Lymphocytes % (Manual) 4.0 L Monocytes % (Manual) 1 L Platelet Estimate Adequate Platelet Comment No clumping noted PT with INR 14.90 H INR 1.32 H PTT (Actin FS) 26.6 L D VBG pH 7.50 H POC VBG pCO2 30.6 L POC VBG pO2 45.3 Mixed VBG HCO3 23.8 Potassium Urine Mucus 12/22/17 12/22/17 12/22/17 17:29 17:29 17:30 Neutrophils % Mixed VBG HCO3 Sodium 139 Potassium 4.0 Chloride 106 Carbon Dioxide 24 Anion Gap 9 BUN 17 D Creatinine 1.1 Creat Clearance w eGFR > 60 Random Glucose 135 H Lactic Acid 2.4 H* Calcium 8.4 L Total Bilirubin 0.8 AST 14 L D ALT 36 D Alkaline Phosphatase 93 Troponin I < 0.02 Total Protein 7.0 Albumin 3.6 Urine Appearance 12/22/17 12/22/17 19:19 21:52 Total Protein Urine Color Dkyellow Dkyellow Urine Appearance Slcloudy Slcloudy Urine pH 5.0 5.0 Ur Specific [place] 1.026 1.026 Urine Protein 1+ H 1+ H Urine Glucose (UA) 2+ H 2+ H Urine Ketones Trace H Trace H Urine Blood 1+ H 1+ H Urine Nitrite Positive Positive Urine Bilirubin Negative Negative Urine Urobilinogen Negative Negative Ur Leukocyte Esterase 2+ H 2+ H Urine WBC (Auto) 69 74 Urine RBC (Auto) 8 6 Ur Epithelial Cells Rare Rare Urine Bacteria Rare Rare Urine Mucus Rare Rare TESTS Micro -12/22/17 Blood cx- pending -12/22/17 Urine cx- pending -12/22/17 Flu (-) EKG -12/22/17 EKG: sinus tach, septal infarct age undetermined. vent rate 119bpm. OH 170ms, QRS 92ms. Qtc 430ms CXR -12/22/17 CXR: bibasilar subsegmental atelectasis noted. ASSESSMENT/PLAN: 57 y/o M with PMH CAD s/p open heart surgery (for ?ASD/VSD in 1966), atrial fibrillation (was on blood thinner for 5 months, does not know name), who presents to the ED c/o chills over the past two days. Pt admitted to med-surg for sepsis 2/2 UTI, ?influenza. #Sepsis 2/2 UTI, ?influenza -Pt febrile to 102.8F, tachy to 132HR, with lactate 2.4, white count 13.1 -UA with 2+leuk esterase, 74WBCs, c/o dysuria, increased urinary freq -Received levaquin 500mg x 1 in ED, NS -To start on rocephin 1gm IVPB qd tomorrow -Though flu swab (-), positive FN recommend tamiflu tx. Within 48hr window. Pt did not receive flu shot, +sick contacts via work -Refused tamiflu prophylaxis -Continue IVF -Repeat lactate 1.1 #Atrial fibrillation -Was on blood thinner for 5 month, pt does not know name -By choice, is not on any medication for tx -currently, in sinus rhythm #F/E/N IV NS 100 cc/hr Monitor electrolytes Regular diet #PPX DVT: SCD's #Dispo med-surg Visit type - Emergency Visit Emergency Visit: Yes ED Registration Date: 12/23/17 Care time: The patient presented to the Emergency Department on the above date and was hospitalized for further evaluation of their emergent condition. - New Patient This patient is new to me today: Yes Date on this admission: 12/23/17 - Critical Care Critical Care patient: No Hospitalist Screening - Colonoscopy Questionnaire Colonoscopy Questionnaire: Colonoscopy Questionnaire - Patient: 50 - 75 years old and never had a screening colonoscopy: Unknown History of colon or rectal polyps, or CA: Unknown History of IBD, Crohn's disease or UC: Unknown History of abdominal radiation therapy as a child: Unknown - Relative: 1 with colon or rectal CA, or polyps at age 60 or younger: Unknown Colon or rectal CA diagnosed at age 45 or younger: Unknown Multiple relatives with colon or rectal CA: Unknown - Outcome: Screening Result: Negative Screen
[2017-12-22] MEDS: SODIUM CHLORIDE 1,000 ML IV SCH (23:36)
[2017-12-23 07:53] LABS: EOS % 0.3 % (0-4.5); HEMATOCRIT 35.5 % (35.4-49); LYMPH % 9.4 % (8-40); MCH 31.8 pg (25.7-33.7); MCHC 33.8 g/dl (32.0-35.9); MEAN CELL VOLUME 94.1 fl (80-96); MEAN PLT VOLUME 8.7 fl (7.5-11.1); MONO % 9.2 % (3.8-10.2); NEUT % 81.1 % (42.8-82.8); PLATELET COUNT 153 K/MM3 (134-434); RBC 3.77 M/mm3 (4.00-5.60); RDW 13.9 % (11.9-15.9)
--- NOTE | 2017-12-23 08:07 | PN ---
Physical Exam: SUBJECTIVE: Patient seen and examined. No fever, chills, n/v since starting abx ; dysuria improving; initially asking to go home OBJECTIVE: Vital Signs Period Temp Pulse Resp BP Sys/Moeller Pulse Ox Last 24 Hr 98.3 F-102.8 F 53-132 16-18 102-103/51-62 97-100 GENERAL: aa0x3, nad HEENT: PERRL, EOMI, sclera anicteric, conjunctiva clear, MMM NECK: supple, no cervical LAD LUNGS: CTAB HEART: rrr, normal s1/s2 ABDOMEN: Soft, NTND, +bowel sounds : no CVA or suprapubic ttp LOWER EXTREMITIES: 2+ DP pulses, wwp, no edema CBC, BMP 12/23/17 07:17 12/23/17 07:17 Hepatic Panel Total Bilirubin 0.8 mg/dL (0.2-1.0) 12/22/17 17:29 AST 14 U/L (15-37) L D 12/22/17 17:29 ALT 36 U/L (12-78) D 12/22/17 17:29 Alkaline Phosphatase 93 U/L (45-117) 12/22/17 17:29 Albumin 3.6 g/dl (3.4-5.0) 12/22/17 17:29 Microbiology 12/22/17 17:29 Blood - Peripheral Venous Blood Culture - Preliminary NO GROWTH OBTAINED AFTER 24 HOURS, INCUBATION TO CONTINUE FOR 4 DAYS. 12/22/17 17:29 Blood - Peripheral Venous Blood Culture - Preliminary Pending Organism 12/22/17 18:53 Nasopharyngeal Swab Influenza Types A,B Antigen (MIKAYLA) - Final 12/22/17 18:53 Nasopharyngeal Swab - Final Active Medications Generic Name Dose Route Start Last Admin Trade Name Freq PRN Reason Stop Dose Admin Sodium Chloride 1,000 mls @ 100 mls/hr 12/22/17 23:30 12/22/17 23:36 Normal Saline - IV 100 mls/hr ASDIR CORINA Administration Ceftriaxone Sodium 1 gm/ 50 mls @ 100 mls/hr 12/23/17 10:00 Dextrose IVPB DAILY CORINA ASSESSMENT/PLAN: 57 y/o M with PMH CAD s/p open heart surgery (for ?ASD/VSD in 1966), atrial fibrillation (was on blood thinner for 5 months, does not know name), who presents to the ED c/o chills over the past two days. Pt admitted to med-surg for sepsis 2/2 UTI, ?influenza. #Sepsis 2/2 GN bactermia likely from UTI, Flu neg -ID consulted -Rocephin 1gm IVPB qd, day 1 -IVF -tylenol for pain -f/u Urine and blood cultures -RUQ Renal/bladder sono #Afib, rate controlled, EKG sinus tach #F/E/N IV NS 100 cc/hr Monitor electrolytes Regular diet #PPX DVT: SCD's #Dispo med-surg Visit type - Emergency Visit Emergency Visit: No - New Patient This patient is new to me today: Yes Date on this admission: 12/23/17 - Critical Care Critical Care patient: No
[2017-12-23 08:18] LABS: INR 1.51 (0.82-1.09); PROTHROMBIN TIME (PATIENT) 17.1 SEC (9.98-11.88)
[2017-12-23 08:25] LABS: ANION GAP 6 (8-16); BLOOD UREA NITROGEN 12 mg/dL (7-18); CHLORIDE 107 mmol/L (98-107); CO2 27 mmol/L (21-32); CREATININE 0.8 mg/dL (0.7-1.3); GLUCOSE,RANDOM 127 mg/dL (74-106); MAGNESIUM 1.9 mg/dL (1.8-2.4); PHOSPHOROUS 2.7 mg/dL (2.5-4.9); POTASSIUM 4.5 mmol/L (3.5-5.1); SODIUM 140 mmol/L (136-145)
[2017-12-23] MEDS ORDERED: CEFTRIAXONE 1 GM in DEXTROSE 5%-WATER - 50 ML IVPB SCH (10:00)
--- NOTE | 2017-12-23 10:11 | EKG ---
Test Reason : Blood Pressure : / mmHG Vent. Rate : 119 BPM Atrial Rate : 119 BPM P-R Int : 170 ms QRS Dur : 092 ms QT Int : 306 ms P-R-T Axes : 067 010 045 degrees QTc Int : 430 ms SINUS TACHYCARDIA SEPTAL INFARCT , AGE UNDETERMINED ABNORMAL ECG WHEN COMPARED WITH ECG OF 15-NOV-2016 13:18, SINUS RHYTHM HAS REPLACED ATRIAL FIBRILLATION NONSPECIFIC T WAVE ABNORMALITY NOW EVIDENT IN LATERAL LEADS Confirmed by MADELINE LE, SAM ([id number]) on 12/23/2017 10:10:55 AM Referred By: Confirmed By:SAM CORREA MD
[2017-12-23] MEDS ORDERED: CEFTRIAXONE 1 GM/50 ML BAG ONE (11:00)
[2017-12-23] MEDS ORDERED: ACETAMINOPHEN 325 MG TABLET (FP) ONE (11:07)
[2017-12-23] MEDS: ACETAMINOPHEN 325 MG TABLET (FP) PO PRN ×2 (11:08→21:26)
--- NOTE | 2017-12-23 15:26 | PN ---
Progress Note (short form) - Note Progress Note: ID consult dictated imp/reccd 57 year old male admitted with 4 day history of urinary frequency, 2 days of fever no cough noted to have fever to 102.3 in ED pyuria ho history of recent antibiotics no history of recent utis- once 10 years ago no history of kndneys sones denies hematuria no renal colic no back pain no scrotal swelling gram negative bacteremia secondary to UTI agree with sonogram kidney/bladder agree with IVF and rocephin will follow with you Problem List - Problems (1) Gram-negative bacteremia Code(s): R78.81 - BACTEREMIA (2) UTI (urinary tract infection) Code(s): N39.0 - URINARY TRACT INFECTION, SITE NOT SPECIFIED Qualifiers: Urinary tract infection type: site unspecified Hematuria presence: without hematuria Qualified Code(s): N39.0 - Urinary tract infection, site not specified
[2017-12-23 15:36] VITALS: BMI 28.8
[2017-12-23] MEDS ORDERED: CEFTRIAXONE 1 GM in DEXTROSE 5%-WATER - 50 ML IVPB ONE (16:30)
[2017-12-23] MEDS ORDERED: DEXTROSE 5%-WATER - 50 ML IVPB ONE (17:20)
[2017-12-23] MEDS ORDERED: cefTRIAXone SODIUM 1 GM VIAL ONE (17:20)
--- NOTE | 2017-12-23 17:30 | CONS ---
DATE OF CONSULTATION: DATE OF DICTATION: 12/23/2017 INFECTIOUS DISEASE CONSULTATION REQUESTING PHYSICIAN: Hospitalist Service CONSULTING PHYSICIAN: Alfred Temple M.D. 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 He has a history of atrial fibrillation in October of 2016. He now presents with a 4-day history of urinary frequency. Over the last 48 hours he started having fevers and chills. He denies nausea, vomiting. He denies cough or shortness of breath. He presented to the ER with these complaints. He had a fever of 102. He was noted to have pyuria and treated with IV fluids and IV antibiotics. I am asked to see him because of cultures growing gram-negative bacillus. He reports feeling improved today. PAST MEDICAL HISTORY: Notable for the history of open heart surgery in 1966, atrial fibrillation last year in 2016, he has a history of appendectomy in 1990. 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 There is no history of any cigarette use. He drinks alcohol socially on weekends. There is no history of any other substance use. FAMILY HISTORY: Notable for heart disease in his father. Mother had a subdural hematoma. Sister with hypertension. ALLERGIES: No known drug allergies. He stopped taking his heart medicines, he describes about 5 or 6 months ago. 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 REVIEW OF SYSTEMS: He is currently feeling well. His chills and fever are stopped. His urinary frequency is diminished. Dysuria is improved as well. PHYSICAL EXAMINATION: General: He is awake and alert. Vital signs: Temperature 98.3, T-max is 102.8, pulse of 64, blood pressure 102/51, respiratory rate 18. He is saturating 97% on room air. HEENT: Normocephalic. Eyes are anicteric. Neck: Supple. Lungs: Clear to auscultation. Heart: Regular rate and rhythm. Abdomen: Soft, nontender. He has no CVA tenderness or suprapubic discomfort. He has no scrotal pain. Extremities: Without edema. LABORATORY: Notable for white count on admission of 13.1, today 11, hemoglobin is 12, platelets are 153. BUN and creatinine are 12 and 0.8. LFTs are normal. Urinalysis 2+ leukocyte esterase with 74 white cells and blood cultures, 1 of 4 bottles is growing gram-negative bacilli. Renal sonogram has been ordered. IMPRESSION: In summary, this is a 57-year-old man with a 4-day history of urinary frequency noted to have fever, gram-negative bacteremia. He has no history of recent antibiotics. No history of UTIs, one 10 years ago. No history of kidney stones. No hematuria. No renal colic. No back pain or scrotal swelling. Would agree with sonogram with kidney and bladder. Would agree with IV fluids and Rocephin. Will follow with you and make further recommendations based on his clinical course. ALFRED TEMPLE M.D. [id number]
--- NOTE | 2017-12-23 17:55 | PN ---
Teaching Attending Note Name of Resident: Venus Dumont ATTENDING PHYSICIAN STATEMENT I saw and evaluated the patient. I reviewed the resident's note and discussed the case with the resident. I agree with the resident's findings and plan as documented with exceptions below. SUBJECTIVE: Patient seen and examined. No abdominal pain, improved urinary symptoms. Currently with no fevers or chills. Overall better. OBJECTIVE: Vital Signs Period Temp Pulse Resp BP Sys/Moeller Pulse Ox Last 24 Hr 98.1 F-98.4 F 53-82 18-20 102-133/51-66 97-98 Intake & Output 12/20/17 12/21/17 12/22/17 12/23/17 23:59 23:59 23:59 23:59 Intake Total 2120 Output Total 260 Balance 1860 Weight 230 lb 218 lb general: sitting in chair in no acute distress Abdomen:soft, ND, NT, no suprapubic or CVA tenderness, positive bowel sounds Home Medication List Medication Instructions Recorded Confirmed Type NK [No Known Home Medication] 12/22/17 12/22/17 History Active Medications Generic Name Dose Route Start Last Admin Trade Name Freq PRN Reason Stop Dose Admin Acetaminophen 650 mg 12/23/17 10:51 12/23/17 11:08 Tylenol - PO 650 mg Q4H PRN Administration PAIN Sodium Chloride 1,000 mls @ 100 mls/hr 12/22/17 23:30 12/22/17 23:36 Normal Saline - IV 100 mls/hr [facility] Administration Ceftriaxone Sodium 2 gm/ 100 mls @ 100 mls/hr 12/24/17 10:00 Dextrose IVPB DAILY [facility] Laboratory Results - last 24 hr 12/22/17 12/22/17 12/22/17 17:29 17:29 17:29 WBC 13.1 H D RBC 4.19 Hgb 13.4 D Hct 39.0 MCV 92.9 MCH 31.9 MCHC 34.3 RDW 14.0 Plt Count 186 MPV 9.4 Total Counted 100 Neutrophils % No Result Required. Neutrophils % (Manual) 87.0 H Band Neutrophils % 8.0 Lymphocytes % No Result Required. Lymphocytes % (Manual) 4.0 L Monocytes % Monocytes % (Manual) 1 L Eosinophils % Basophils % Platelet Estimate Adequate Platelet Comment No clumping noted PT with INR 14.90 H INR 1.32 H PTT (Actin FS) 26.6 L D VBG pH 7.50 H POC VBG pCO2 30.6 L POC VBG pO2 45.3 Mixed VBG HCO3 23.8 Sodium Potassium Chloride Carbon Dioxide Anion Gap BUN Creatinine Creat Clearance w eGFR Random Glucose Lactic Acid Calcium Phosphorus Magnesium Total Bilirubin AST ALT Alkaline Phosphatase Troponin I Total Protein Albumin Urine Color Urine Appearance Urine pH Ur Specific [place] Urine Protein Urine Glucose (UA) Urine Ketones Urine Blood Urine Nitrite Urine Bilirubin Urine Urobilinogen Ur Leukocyte Esterase Urine WBC (Auto) Urine RBC (Auto) Ur Epithelial Cells Urine Bacteria Urine Mucus 12/22/17 12/22/17 12/22/17 17:29 17:29 17:30 WBC RBC Hgb Hct MCV MCH MCHC RDW Plt Count MPV Total Counted Neutrophils % Neutrophils % (Manual) Band Neutrophils % Lymphocytes % Lymphocytes % (Manual) Monocytes % Monocytes % (Manual) Eosinophils % Basophils % Platelet Estimate Platelet Comment PT with INR INR PTT (Actin FS) VBG pH POC VBG pCO2 POC VBG pO2 Mixed VBG HCO3 Sodium 139 Potassium 4.0 Chloride 106 Carbon Dioxide 24 Anion Gap 9 BUN 17 D Creatinine 1.1 Creat Clearance w eGFR > 60 Random Glucose 135 H Lactic Acid 2.4 H* Calcium 8.4 L Phosphorus Magnesium Total Bilirubin 0.8 AST 14 L D ALT 36 D Alkaline Phosphatase 93 Troponin I < 0.02 Total Protein 7.0 Albumin 3.6 Urine Color Urine Appearance Urine pH Ur Specific [place] Urine Protein Urine Glucose (UA) Urine Ketones Urine Blood Urine Nitrite Urine Bilirubin Urine Urobilinogen Ur Leukocyte Esterase Urine WBC (Auto) Urine RBC (Auto) Ur Epithelial Cells Urine Bacteria Urine Mucus 12/22/17 12/22/17 12/22/17 19:19 21:10 21:52 WBC RBC Hgb Hct MCV MCH MCHC RDW Plt Count MPV Total Counted Neutrophils % Neutrophils % (Manual) Band Neutrophils % Lymphocytes % Lymphocytes % (Manual) Monocytes % Monocytes % (Manual) Eosinophils % Basophils % Platelet Estimate Platelet Comment PT with INR INR PTT (Actin FS) VBG pH POC VBG pCO2 POC VBG pO2 Mixed VBG HCO3 Sodium Potassium Chloride Carbon Dioxide Anion Gap BUN Creatinine Creat Clearance w eGFR Random Glucose Lactic Acid 1.1 Calcium Phosphorus Magnesium Total Bilirubin AST ALT Alkaline Phosphatase Troponin I Total Protein Albumin Urine Color Dkyellow Dkyellow Urine Appearance Slcloudy Slcloudy Urine pH 5.0 5.0 Ur Specific [place] 1.026 1.026 Urine Protein 1+ H 1+ H Urine Glucose (UA) 2+ H 2+ H Urine Ketones Trace H Trace H Urine Blood 1+ H 1+ H Urine Nitrite Positive Positive Urine Bilirubin Negative Negative Urine Urobilinogen Negative Negative Ur Leukocyte Esterase 2+ H 2+ H Urine WBC (Auto) 69 74 Urine RBC (Auto) 8 6 Ur Epithelial Cells Rare Rare Urine Bacteria Rare Rare Urine Mucus Rare Rare 12/23/17 12/23/17 12/23/17 07:17 07:17 07:17 WBC 11.0 H RBC 3.77 L Hgb 12.0 D Hct 35.5 MCV 94.1 MCH 31.8 MCHC 33.8 RDW 13.9 Plt Count 153 MPV 8.7 Total Counted Neutrophils % 81.1 D Neutrophils % (Manual) Band Neutrophils % Lymphocytes % 9.4 D Lymphocytes % (Manual) Monocytes % 9.2 Monocytes % (Manual) Eosinophils % 0.3 Basophils % 0.0 Platelet Estimate Platelet Comment PT with INR 17.10 H INR 1.51 H PTT (Actin FS) VBG pH POC VBG pCO2 POC VBG pO2 Mixed VBG HCO3 Sodium 140 Potassium 4.5 Chloride 107 Carbon Dioxide 27 Anion Gap 6 L BUN 12 D Creatinine 0.8 D Creat Clearance w eGFR Random Glucose 127 H Lactic Acid Calcium 8.0 L Phosphorus 2.7 Magnesium 1.9 Total Bilirubin AST ALT Alkaline Phosphatase Troponin I Total Protein Albumin Urine Color Urine Appearance Urine pH Ur Specific [place] Urine Protein Urine Glucose (UA) Urine Ketones Urine Blood Urine Nitrite Urine Bilirubin Urine Urobilinogen Ur Leukocyte Esterase Urine WBC (Auto) Urine RBC (Auto) Ur Epithelial Cells Urine Bacteria Urine Mucus Microbiology 12/22/17 17:29 Blood - Peripheral Venous Blood Culture - Preliminary NO GROWTH OBTAINED AFTER 24 HOURS, INCUBATION TO CONTINUE FOR 4 DAYS. 12/22/17 17:29 Blood - Peripheral Venous Blood Culture - Preliminary Pending Organism 12/22/17 18:53 Nasopharyngeal Swab Influenza Types A,B Antigen (MIKAYLA) - Final 12/22/17 18:53 Nasopharyngeal Swab - Final ASSESSMENT AND PLAN: 57 yom with PMHx of open heart surgery at age 7, paroxysmal Afib in 10/2016, off meds, admitted with sepsis secondary to UTI/bacteremia -Sepsis secondary to UTI/Bacteremia -Elevated INR, ?Etiology -Paroxysmal atrial fibrillation -Open heart surgery at age 7 Plan: ID input appreciated. Ceftriaxone day 1. Follow up blood/urine cultures. Renal ultrasound noted. Bladder US. r/o prostatitis though low suspicion. Resume ASA. Resume metoprolol as indicated. Unclear etiology for elevated INR, borderline platelets. Check abdominal ultrasound. Start DVTPPx if non ambulatory and anticipate stay > 48 hours. Dispo in 24-48 hours pending clinical improvement.
[2017-12-24] MEDS: SODIUM CHLORIDE 1,000 ML IV SCH ×2 (01:13→15:12)
--- NOTE | 2017-12-24 07:50 | PN ---
Physical Exam: SUBJECTIVE: Patient seen and examined. 2/ blood Cx positive; No events overnight; Denies fever, chills, urinary symptoms OBJECTIVE: Vital Signs Period Temp Pulse Resp BP Sys/Moeller Pulse Ox Last 24 Hr 98.1 F-100.2 F 64-82 18-20 116-133/61-69 97-97 GENERAL: aa0x3, nad HEENT: PERRL, EOMI, sclera anicteric, conjunctiva clear, MMM NECK: supple, no cervical LAD LUNGS: CTAB HEART: rrr, normal s1/s2 ABDOMEN: Soft, NTND, +bowel sounds : no CVA or suprapubic ttp LOWER EXTREMITIES: 2+ DP pulses, wwp, no edema CBC, BMP 12/24/17 06:00 12/24/17 06:00 Hepatic Panel Total Bilirubin 0.3 mg/dL (0.2-1.0) D 12/24/17 06:00 AST 42 U/L (15-37) H D 12/24/17 06:00 ALT 46 U/L (12-78) D 12/24/17 06:00 Alkaline Phosphatase 66 U/L (45-117) D 12/24/17 06:00 Albumin 3.2 g/dl (3.4-5.0) L 12/24/17 06:00 Microbiology 12/22/17 19:19 Urine - Urine Clean Catch Urine Culture - Preliminary Lactose Fermenting Neg Bacilli 12/22/17 21:52 Urine - Urine Clean Catch Urine Culture - Preliminary Lactose Fermenting Neg Bacilli 12/22/17 17:29 Blood - Peripheral Venous Blood Culture - Preliminary Lactose Fermenting Neg Bacilli 12/22/17 17:29 Blood - Peripheral Venous Blood Culture - Preliminary NO GROWTH OBTAINED AFTER 24 HOURS, INCUBATION TO CONTINUE FOR 4 DAYS. 12/22/17 18:53 Nasopharyngeal Swab Influenza Types A,B Antigen (MIKAYLA) - Final 12/22/17 18:53 Nasopharyngeal Swab - Final Active Medications Acetaminophen (Tylenol -) 650 mg PO Q4H PRN PRN Reason: PAIN Last Admin: 12/23/17 21:26 Dose: 650 mg Aspirin (Ecotrin -) 81 mg PO DAILY [facility] Enoxaparin Sodium (Lovenox -) 40 mg SQ DAILY [facility] Sodium Chloride (Normal Saline -) 1,000 mls @ 100 mls/hr IV [facility] Last Admin: 12/24/17 15:12 Dose: 100 mls/hr Ceftriaxone Sodium 2 gm/ (Dextrose) 100 mls @ 100 mls/hr IVPB DAILY [facility] Last Admin: 12/24/17 09:43 Dose: 100 mls/hr ASSESSMENT/PLAN: 57 y/o M with PMH CAD s/p open heart surgery (for ?ASD/VSD in 1966), atrial fibrillation (was on blood thinner for 5 months, does not know name), who presents to the ED c/o chills over the past two days. Pt admitted to med-surg for sepsis 2/2 UTI, ?influenza. #Sepsis 2/2 GN bacteremia likely from UTI, Flu neg -Urine Cx and 1/2 blood cx growing lactose fermenting GNB, f/u speciation and sensitivities -ID consulted -Rocephin 2gm IVPB qd, day 2 -IVF -tylenol for pain #Afib, rate controlled, EKG sinus tach -started on ASA PO daily #F/E/N IV NS 100 cc/hr lytes wnl Regular diet #PPX DVT: lovenox 40mg SQ daily #Dispo: med-surg FULL code Visit type - Emergency Visit Emergency Visit: No - New Patient This patient is new to me today: No - Critical Care Critical Care patient: No
[2017-12-24 08:00] LABS: HEMATOCRIT 37.8 % (35.4-49); HEMOGLOBIN 12.9 GM/dL (11.7-16.9); MCH 31.8 pg (25.7-33.7); MCHC 34.2 g/dl (32.0-35.9); MEAN CELL VOLUME 92.9 fl (80-96); MEAN PLT VOLUME 9.4 fl (7.5-11.1); PLATELET COUNT 168 K/MM3 (134-434); RBC 4.07 M/mm3 (4.00-5.60); RDW 13.8 % (11.9-15.9); WHITE BLOOD COUNT 5.6 K/mm3 (4.0-10.0)
[2017-12-24 08:28] LABS: ALBUMIN 3.2 g/dl (3.4-5.0); ANION GAP 8 (8-16); BILIRUBIN,TOTAL 0.3 mg/dL (0.2-1.0); CALCIUM 8.5 mg/dL (8.5-10.1); CHLORIDE 106 mmol/L (98-107); CO2 28 mmol/L (21-32); CREATININE 0.8 mg/dL (0.7-1.3); GLUCOSE,RANDOM 122 mg/dL (74-106); POTASSIUM 4.4 mmol/L (3.5-5.1); SGOT/AST 42 U/L (15-37); SGPT/ALT 46 U/L (12-78); SODIUM 142 mmol/L (136-145); TOT PROT 6.7 g/dl (6.4-8.2)
[2017-12-24 08:30] LABS: ALK PHOS 66 U/L (45-117); BLOOD UREA NITROGEN 9 mg/dL (7-18)
[2017-12-24 08:35] LABS: INR 1.27 (0.82-1.09); PROTHROMBIN TIME (PATIENT) 14.4 SEC (9.98-11.88)
[2017-12-24] MEDS ORDERED: PT OWN MED DRAWER 7, Y5N ONE (09:42)
[2017-12-24] MEDS: CEFTRIAXONE 2 GM in DEXTROSE 5%-WATER - 100 ML IVPB SCH (09:43)
--- NOTE | 2017-12-24 11:11 | PN ---
Progress Note, Physician Chief Complaint: ID Pt feels better, no fevers, dysuria resolved Ceftriaxone Day 2 - Current Medication List Current Medications: Active Medications Acetaminophen (Tylenol -) 650 mg PO Q4H PRN PRN Reason: PAIN Last Admin: 12/23/17 21:26 Dose: 650 mg Sodium Chloride (Normal Saline -) 1,000 mls @ 100 mls/hr IV ASDIR [facility] Last Admin: 12/24/17 01:13 Dose: 100 mls/hr Ceftriaxone Sodium 2 gm/ (Dextrose) 100 mls @ 100 mls/hr IVPB DAILY [facility] Last Admin: 12/24/17 09:43 Dose: 100 mls/hr - Objective Vital Signs: Vital Signs Temperature 98.8 F 12/24/17 09:35 Pulse Rate 68 12/24/17 09:35 Respiratory Rate 20 12/24/17 09:35 Blood Pressure 122/67 12/24/17 09:35 O2 Sat by Pulse Oximetry (%) 97 12/23/17 21:00 Constitutional: Yes: Well Nourished, No Distress HENT: Yes: Atraumatic, Normocephalic Neck: Yes: Supple, Trachea Midline Cardiovascular: Yes: Regular Rate and Rhythm, S1, S2 Respiratory: Yes: Regular, CTA Bilaterally Gastrointestinal: Yes: Normal Bowel Sounds, Soft. No: Tenderness, Tenderness, Rebound Musculoskeletal: No: Back Pain Edema: No Labs: CBC, BMP 12/24/17 06:00 12/24/17 06:00 INR, PTT INR 1.27 (0.82-1.09) H 12/24/17 06:00 Assessment/Plan Microbiology 12/22/17 21:52 Urine - Urine Clean Catch Urine Culture - Preliminary Lactose Fermenting Neg Bacilli 12/22/17 17:29 Blood - Peripheral Venous Blood Culture - Preliminary Lactose Fermenting Neg Bacilli Laboratory Tests 12/24/17 12/24/17 06:00 06:00 WBC 5.6 D Hgb 12.9 Hct 37.8 Plt Count 168 BUN 9 D Creatinine 0.8 Assessment Gram negative bacteremia with UTI on Ceftriaxone day 2 Plan Continue Ceftriaxone pending c/s Recommended follow up with Urologist outpatient
[2017-12-24 11:17] LABS: ACANTHOCYTES 0; ANISOCYTOSIS 0; HELMET CELLS 0; HOWELL-JOLLY BODIES 0; MACROCYTOSIS 0; OVALOCYTE 0; PLATELET ESTIMATE NORMAL; ROULEAU 0; SICKELED CELLS 0; TARGET CELLS 0; TEAR DROP CELLS 0; TOXIC GRANULATION 0
--- NOTE | 2017-12-24 12:44 | PN ---
Teaching Attending Note Name of Resident: Venus Dumont ATTENDING PHYSICIAN STATEMENT I saw and evaluated the patient. I reviewed the resident's note and discussed the case with the resident. I agree with the resident's findings and plan as documented with exceptions mentioned below. SUBJECTIVE: patient seen and examined, no suprapubic or back pain or urinary symptoms, overall feels better, tolerating diet well. OBJECTIVE: Vital Signs Period Temp Pulse Resp BP Sys/Moeller Pulse Ox Last 24 Hr 98.1 F-100.2 F 64-82 18-20 116-133/61-69 95-97 Intake & Output 12/21/17 12/22/17 12/23/17 12/24/17 23:59 23:59 23:59 23:59 Intake Total 2120 900 Output Total 260 200 Balance 1860 700 Weight 230 lb 218 lb General: lying in bed in no acute distress Abdomen: soft, NT, Nd, positive bowel sounds, no CVA tenderness Home Medication List Medication Instructions Recorded Confirmed Type NK [No Known Home Medication] 12/22/17 12/22/17 History Active Medications Generic Name Dose Route Start Last Admin Trade Name Freq PRN Reason Stop Dose Admin Acetaminophen 650 mg 12/23/17 10:51 12/23/17 21:26 Tylenol - PO 650 mg Q4H PRN Administration PAIN Sodium Chloride 1,000 mls @ 100 mls/hr 12/22/17 23:30 12/24/17 01:13 Normal Saline - IV 100 mls/hr [facility] Administration Ceftriaxone Sodium 2 gm/ 100 mls @ 100 mls/hr 12/24/17 10:00 12/24/17 09:43 Dextrose IVPB 100 mls/hr DAILY [facility] Administration Laboratory Results - last 24 hr 12/24/17 12/24/17 12/24/17 06:00 06:00 06:00 WBC 5.6 D RBC 4.07 Hgb 12.9 Hct 37.8 MCV 92.9 MCH 31.8 MCHC 34.2 RDW 13.8 Plt Count 168 MPV 9.4 Neutrophils % No Result Required. Neutrophils % (Manual) 51.0 D Band Neutrophils % 0.0 Lymphocytes % No Result Required. Lymphocytes % (Manual) 26.5 D Monocytes % (Manual) 12 H D Eosinophils % (Manual) 1.0 Basophils % (Manual) 0.0 Myelocytes % (Man) 0 Promyelocytes % (Man) 0 Blast Cells % (Manual) 0 Nucleated RBC % 0 Metamyelocytes 0 Hypochromia 0 Toxic Granulation 0 Dohle Bodies 0 Platelet Estimate Normal Polychromasia 0 Poikilocytosis 0 Basophilic Stippling 0 Anisocytosis 0 Microcytosis 0 Macrocytosis 0 Spherocytes 0 Sickle Cells 0 Target Cells 0 Tear Drop Cells 0 Ovalocytes 0 Stomatocytes 0 Helmet Cells 0 Colon-[place] Bodies 0 [place] Rings 0 Elisha Cells 0 Acanthocytes (Spur) 0 Rouleaux 0 Fragmented RBCs 0 Schistocytes 0 PT with INR 14.40 H INR 1.27 H Sodium 142 Potassium 4.4 Chloride 106 Carbon Dioxide 28 Anion Gap 8 BUN 9 D Creatinine 0.8 Creat Clearance w eGFR > 60 Random Glucose 122 H Calcium 8.5 Total Bilirubin 0.3 D AST 42 H D ALT 46 D Alkaline Phosphatase 66 D Total Protein 6.7 Albumin 3.2 L Microbiology 12/22/17 19:19 Urine - Urine Clean Catch Urine Culture - Preliminary Lactose Fermenting Neg Bacilli 12/22/17 21:52 Urine - Urine Clean Catch Urine Culture - Preliminary Lactose Fermenting Neg Bacilli 12/22/17 17:29 Blood - Peripheral Venous Blood Culture - Preliminary Lactose Fermenting Neg Bacilli 12/22/17 17:29 Blood - Peripheral Venous Blood Culture - Preliminary NO GROWTH OBTAINED AFTER 24 HOURS, INCUBATION TO CONTINUE FOR 4 DAYS. 12/22/17 18:53 Nasopharyngeal Swab Influenza Types A,B Antigen (MIKAYLA) - Final 12/22/17 18:53 Nasopharyngeal Swab - Final ASSESSMENT AND PLAN: 57 yom with PMHx of open heart surgery at age 7, paroxysmal Afib in 10/2016, off meds, admitted with sepsis secondary to UTI/bacteremia -Sepsis secondary to Gm neg UTI/bacteremia -Elevated INR, ?Etiology -Paroxysmal atrial fibrillation -Open heart surgery at age 7 Plan: Clinically improved. Ceftriaxone day 2, blood/urine cultures with GNB, follow ID /sensitivities. Renal ultrasound noted. Bladder US. r/o prostatitis though low suspicion. Continue ASA. Resume metoprolol as indicated. Unclear etiology for elevated INR, borderline platelets. COags stable. Abdominal ultrasound noted, outpatient monitoring. Check lipid panel. Start DVTPPx with lovenox. Dispo in 24-48 hours pending culture results if continues to improve.
[2017-12-24] MEDS: ACETAMINOPHEN 325 MG TABLET (FP) PO PRN (18:50)
[2017-12-25] MEDS: SODIUM CHLORIDE 1,000 ML IV SCH (07:25)
--- NOTE | 2017-12-25 08:03 | PN ---
Physical Exam: SUBJECTIVE: Patient seen and examined OBJECTIVE: Vital Signs Period Temp Pulse Resp BP Sys/Moeller Pulse Ox Last 24 Hr 98.0 F-99.7 F 54-68 20-20 122-141/67-79 95-98 GENERAL: aa0x3, nad HEENT: PERRL, EOMI, sclera anicteric, conjunctiva clear, MMM NECK: supple, no cervical LAD LUNGS: CTAB HEART: rrr, normal s1/s2 ABDOMEN: Soft, NTND, +bowel sounds : no CVA or suprapubic ttp Rectal: prostate smooth, prostate no ttp LOWER EXTREMITIES: 2+ DP pulses, wwp, no edema CBC, BMP 12/25/17 07:30 12/24/17 06:00 Hepatic Panel Total Bilirubin 0.3 mg/dL (0.2-1.0) D 12/24/17 06:00 AST 42 U/L (15-37) H D 12/24/17 06:00 ALT 46 U/L (12-78) D 12/24/17 06:00 Alkaline Phosphatase 66 U/L (45-117) D 12/24/17 06:00 Albumin 3.2 g/dl (3.4-5.0) L 12/24/17 06:00 Microbiology 12/22/17 17:29 Blood - Peripheral Venous Blood Culture - Preliminary NO GROWTH OBTAINED AFTER 72 HOURS, INCUBATION TO CONTINUE FOR 2 DAYS. 12/22/17 19:19 Urine - Urine Clean Catch Urine Culture - Final Escherichia Coli 12/22/17 17:29 Blood - Peripheral Venous Blood Culture - Final Escherichia Coli 12/22/17 21:52 Urine - Urine Clean Catch Urine Culture - Preliminary Escherichia Coli 12/22/17 18:53 Nasopharyngeal Swab Influenza Types A,B Antigen (MIKAYLA) - Final 12/22/17 18:53 Nasopharyngeal Swab - Final Active Medications Acetaminophen (Tylenol -) 650 mg PO Q4H PRN PRN Reason: PAIN Last Admin: 12/24/17 18:50 Dose: 650 mg Aspirin (Ecotrin -) 81 mg PO DAILY [facility] Last Admin: 12/25/17 11:33 Dose: 81 mg Enoxaparin Sodium (Lovenox -) 40 mg SQ DAILY [facility] Last Admin: 12/25/17 13:05 Dose: Not Given Sodium Chloride (Normal Saline -) 1,000 mls @ 100 mls/hr IV ASDIR [facility] Last Admin: 12/25/17 07:25 Dose: Not Given Ceftriaxone Sodium 2 gm/ (Dextrose) 100 mls @ 100 mls/hr IVPB DAILY [facility] Last Admin: 12/25/17 11:33 Dose: 100 mls/hr Tamsulosin HCl (Flomax -) 0.4 mg PO HS [facility] Last Admin: 12/25/17 22:05 Dose: 0.4 mg ASSESSMENT/PLAN: 57yo man with PMH CAD s/p open heart surgery (for ?ASD/VSD in 1966), atrial fibrillation (was on blood thinner for 5 months, does not know name), who presents to the ED c/o chills over the past two days. Pt admitted to med-surg for sepsis 2/2 UTI, ?influenza. #Sepsis 2/2 GN bacteremia likely from UTI, Flu neg -Urine Cx and 1/2 blood cx growing lactose fermenting GNB, growing E. coli -ID consulted -Rocephin 2gm IVPB qd, day 3 -IVF -tylenol for pain #Afib, rate controlled, EKG sinus tach -ASA PO daily #F/E/N IV NS 100 cc/hr lytes wnl Regular diet #PPX DVT: lovenox 40mg SQ daily #Dispo: med-surg FULL code Visit type - Emergency Visit Emergency Visit: No - New Patient This patient is new to me today: No - Critical Care Critical Care patient: No - Discharge Referral Referred to [facility] Med P.C.: No
[2017-12-25 08:31] LABS: BASO % 0.4 % (0-2.0); HEMATOCRIT 37.7 % (35.4-49); HEMOGLOBIN 12.9 GM/dL (11.7-16.9); LYMPH % 33.1 % (8-40); MCHC 34.2 g/dl (32.0-35.9); MEAN CELL VOLUME 93.5 fl (80-96); MEAN PLT VOLUME 9.3 fl (7.5-11.1); MONO % 17.2 % (3.8-10.2); NEUT % 47.3 % (42.8-82.8); PLATELET COUNT 184 K/MM3 (134-434); RBC 4.03 M/mm3 (4.00-5.60); RDW 13.5 % (11.9-15.9); WHITE BLOOD COUNT 4.3 K/mm3 (4.0-10.0)
[2017-12-25 09:06] LABS: CHOLESTEROL 135 mg/dL (50-200); HDL CHOLESTEROL 33 mg/dL (40-60); LDL CHOLESTEROL (ONLY SJRH) 83 mg/dL (5-100); TRIGLYCERIDES 156 mg/dL (35-160)
[2017-12-25] MEDS: ASPIRIN COATED 81 MG TABLET.EC PO SCH (11:33)
[2017-12-25] MEDS: CEFTRIAXONE 2 GM in DEXTROSE 5%-WATER - 100 ML IVPB SCH (11:33)
[2017-12-25] MEDS: ENOXAPARIN NA (PORCINE) 40 MG/0.4 ML DISP.SYRIN SQ SCH ×2 (11:35→13:05)
--- NOTE | 2017-12-25 13:13 | PN ---
Progress Note (short form) - Note Progress Note: overall improved dyuria and frequency resolving Vital Signs Period Temp Pulse Resp BP Sys/Moeller Pulse Ox Last 24 Hr 98.0 F-99.7 F 54-98 18-20 122-141/68-92 98 cor-rrr lungs clear abd soft,nt ext no edema CBC, BMP 12/25/17 07:30 12/24/17 06:00 Microbiology 12/22/17 19:19 Urine - Urine Clean Catch Urine Culture - Final Escherichia Coli 12/22/17 17:29 Blood - Peripheral Venous Blood Culture - Final Escherichia Coli 12/22/17 21:52 Urine - Urine Clean Catch Urine Culture - Preliminary Escherichia Coli 12/22/17 17:29 Blood - Peripheral Venous Blood Culture - Preliminary NO GROWTH OBTAINED AFTER 48 HOURS, INCUBATION TO CONTINUE FOR 3 DAYS. 12/22/17 18:53 Nasopharyngeal Swab Influenza Types A,B Antigen (MIKAYLA) - Final 12/22/17 18:53 Nasopharyngeal Swab - Final bladder sono with +PVR , enlarged prostate and cystitis a/p ecoli bactremia secondary to UTI continue ceftriaxone in hospital day #3 urology consult pending would treat 2 weeks po levaquin when ready for discharge-500 mg daily to complete 14 days total treatment bactrim resistant Problem List - Problems (1) Gram-negative bacteremia Code(s): R78.81 - BACTEREMIA (2) UTI (urinary tract infection) Code(s): N39.0 - URINARY TRACT INFECTION, SITE NOT SPECIFIED Qualifiers: Urinary tract infection type: site unspecified Hematuria presence: without hematuria Qualified Code(s): N39.0 - Urinary tract infection, site not specified
--- NOTE | 2017-12-25 17:25 | PN ---
Teaching Attending Note Name of Resident: Venus Dumont ATTENDING PHYSICIAN STATEMENT I saw and evaluated the patient. I reviewed the resident's note and discussed the case with the resident. I agree with the resident's findings and plan as documented with exceptions mentioned below. SUBJECTIVE: Patient seen and examined. no complaints, doing well. OBJECTIVE: Intake & Output 12/22/17 12/23/17 12/24/17 12/25/17 23:59 23:59 23:59 23:59 Intake Total 2120 2300 1420 Output Total 260 800 Balance 1860 1500 1420 Weight 230 lb 218 lb Vital Signs Period Temp Pulse Resp BP Sys/Moeller Pulse Ox Last 24 Hr 98.0 F-99.4 F 54-98 18-20 122-135/68-92 98-98 general: ambulating in room, no acute distress Abdomen:Soft, NT, ND, positive bowel sounds, no CVA tenderness Home Medication List Medication Instructions Recorded Confirmed Type NK [No Known Home Medication] 12/22/17 12/22/17 History Active Medications Generic Name Dose Route Start Last Admin Trade Name Freq PRN Reason Stop Dose Admin Acetaminophen 650 mg 12/23/17 10:51 12/24/17 18:50 Tylenol - PO 650 mg Q4H PRN Administration PAIN Aspirin 81 mg 12/25/17 10:00 12/25/17 11:33 Ecotrin - PO 81 mg DAILY [facility] Administration Enoxaparin Sodium 40 mg 12/25/17 10:00 12/25/17 13:05 Lovenox - SQ Not Given DAILY [facility] Sodium Chloride 1,000 mls @ 100 mls/hr 12/22/17 23:30 12/25/17 07:25 Normal Saline - IV Not Given [facility] Ceftriaxone Sodium 2 gm/ 100 mls @ 100 mls/hr 12/24/17 10:00 12/25/17 11:33 Dextrose IVPB 100 mls/hr DAILY [facility] Administration Tamsulosin HCl 0.4 mg 12/25/17 22:00 Flomax - PO HS [facility] Laboratory Results - last 24 hr 12/25/17 12/25/17 12/25/17 06:30 07:30 07:30 WBC 4.3 RBC 4.03 Hgb 12.9 Hct 37.7 MCV 93.5 MCH 32.0 MCHC 34.2 RDW 13.5 Plt Count 184 MPV 9.3 Neutrophils % 47.3 D Lymphocytes % 33.1 D Monocytes % 17.2 H D Eosinophils % 2.0 D Basophils % 0.4 D Hemoglobin A1c % 6.5 H Triglycerides 156 Cholesterol 135 Total LDL Cholesterol 83 HDL Cholesterol 33 L Microbiology 12/22/17 19:19 Urine - Urine Clean Catch Urine Culture - Final Escherichia Coli 12/22/17 17:29 Blood - Peripheral Venous Blood Culture - Final Escherichia Coli 12/22/17 21:52 Urine - Urine Clean Catch Urine Culture - Preliminary Escherichia Coli 12/22/17 17:29 Blood - Peripheral Venous Blood Culture - Preliminary NO GROWTH OBTAINED AFTER 48 HOURS, INCUBATION TO CONTINUE FOR 3 DAYS. 12/22/17 18:53 Nasopharyngeal Swab Influenza Types A,B Antigen (MIKAYLA) - Final 12/22/17 18:53 Nasopharyngeal Swab - Final ASSESSMENT AND PLAN: 57 yom with PMHx of open heart surgery at age 7, paroxysmal Afib in 10/2016, off meds, admitted with sepsis secondary to UTI/bacteremia -Sepsis s _Lower complicated E. coli UTI/cystitis with bacteremia likely from BPH -Elevated INR, ?Etiology, improved -Paroxysmal atrial fibrillation -Open heart surgery at age 7 Plan: Doing well, resolved fever/leucocytosis and symptoms. Urine/blood cultures noted, transition to levaquin on discharge for a total 14 days course. Bladder US noted, start flomax, discussed with patient, needs urology follow up. Continue ASA. Resume metoprolol as indicated, no indication currently. Lipid panel noted. d/c in 24 hours on levaquin if no new events.
[2017-12-25] MEDS ORDERED: TAMSULOSIN HCL 0.4 MG CAP.ER.24H (FP) PO SCH (22:00)
[2017-12-26] MEDS: SODIUM CHLORIDE 1,000 ML IV SCH (02:38)
--- NOTE | 2017-12-26 08:58 | DS ---
Physical Exam: SUBJECTIVE: Patient seen and examined, no complaints, doing well, eager to be discharge. OBJECTIVE: Vital Signs Period Temp Pulse Resp BP Sys/Moeller Pulse Ox Last 24 Hr 98.0 F-98.8 F 52-98 18-20 124-136/73-92 98-98 PHYSICAL EXAM General: sitting in bed, no acute distress CVS:S1S2 regular Chest: CTAB, no rales or wheezing abdomen:soft, NT, ND, positive bowel sounds, no suprapubic or CVA tenderness Extremities: no edema LABS Laboratory Results - last 24 hr 12/25/17 12/25/17 06:30 07:30 Hemoglobin A1c % 6.5 H Triglycerides 156 Cholesterol 135 Total LDL Cholesterol 83 HDL Cholesterol 33 L Laboratory Tests 12/22/17 12/22/17 12/22/17 17:29 17:29 17:29 WBC 13.1 H D RBC 4.19 Hgb 13.4 D Hct 39.0 MCV 92.9 MCH 31.9 MCHC 34.3 RDW 14.0 Plt Count 186 MPV 9.4 Total Counted 100 Neutrophils % No Result Required. Neutrophils % (Manual) 87.0 H Band Neutrophils % 8.0 Lymphocytes % No Result Required. Lymphocytes % (Manual) 4.0 L Monocytes % Monocytes % (Manual) 1 L Eosinophils % Eosinophils % (Manual) Basophils % Basophils % (Manual) Myelocytes % (Man) Promyelocytes % (Man) Blast Cells % (Manual) Nucleated RBC % Metamyelocytes Hypochromia Toxic Granulation Dohle Bodies Platelet Estimate Adequate Platelet Comment No clumping noted Polychromasia Poikilocytosis Basophilic Stippling Anisocytosis Microcytosis Macrocytosis Spherocytes Sickle Cells Target Cells Tear Drop Cells Ovalocytes Stomatocytes Helmet Cells Colon-Wisdom Bodies Advance Rings [place] Cells Acanthocytes (Spur) Rouleaux Fragmented RBCs Schistocytes PT with INR 14.90 H INR 1.32 H PTT (Actin FS) 26.6 L D VBG pH 7.50 H POC VBG pCO2 30.6 L POC VBG pO2 45.3 Mixed VBG HCO3 23.8 Sodium Potassium Chloride Carbon Dioxide Anion Gap BUN Creatinine Creat Clearance w eGFR Random Glucose Hemoglobin A1c % Lactic Acid Calcium Phosphorus Magnesium Total Bilirubin AST ALT Alkaline Phosphatase Troponin I Total Protein Albumin Triglycerides Cholesterol Total LDL Cholesterol HDL Cholesterol Urine Color Urine Appearance Urine pH Ur Specific [place] Urine Protein Urine Glucose (UA) Urine Ketones Urine Blood Urine Nitrite Urine Bilirubin Urine Urobilinogen Ur Leukocyte Esterase Urine WBC (Auto) Urine RBC (Auto) Ur Epithelial Cells Urine Bacteria Urine Mucus 12/22/17 12/22/17 12/22/17 17:29 17:29 17:30 WBC RBC Hgb Hct MCV MCH MCHC RDW Plt Count MPV Total Counted Neutrophils % Neutrophils % (Manual) Band Neutrophils % Lymphocytes % Lymphocytes % (Manual) Monocytes % Monocytes % (Manual) Eosinophils % Eosinophils % (Manual) Basophils % Basophils % (Manual) Myelocytes % (Man) Promyelocytes % (Man) Blast Cells % (Manual) Nucleated RBC % Metamyelocytes Hypochromia Toxic Granulation Dohle Bodies Platelet Estimate Platelet Comment Polychromasia Poikilocytosis Basophilic Stippling Anisocytosis Microcytosis Macrocytosis Spherocytes Sickle Cells Target Cells Tear Drop Cells Ovalocytes Stomatocytes Helmet Cells Colon-Wisdom Bodies Advance Rings Elisha Cells Acanthocytes (Spur) Rouleaux Fragmented RBCs Schistocytes PT with INR INR PTT (Actin FS) VBG pH POC VBG pCO2 POC VBG pO2 Mixed VBG HCO3 Sodium 139 Potassium 4.0 Chloride 106 Carbon Dioxide 24 Anion Gap 9 BUN 17 D Creatinine 1.1 Creat Clearance w eGFR > 60 Random Glucose 135 H Hemoglobin A1c % Lactic Acid 2.4 H* Calcium 8.4 L Phosphorus Magnesium Total Bilirubin 0.8 AST 14 L D ALT 36 D Alkaline Phosphatase 93 Troponin I < 0.02 Total Protein 7.0 Albumin 3.6 Triglycerides Cholesterol Total LDL Cholesterol HDL Cholesterol Urine Color Urine Appearance Urine pH Ur Specific [place] Urine Protein Urine Glucose (UA) Urine Ketones Urine Blood Urine Nitrite Urine Bilirubin Urine Urobilinogen Ur Leukocyte Esterase Urine WBC (Auto) Urine RBC (Auto) Ur Epithelial Cells Urine Bacteria Urine Mucus 12/22/17 12/22/17 12/22/17 19:19 21:10 21:52 WBC RBC Hgb Hct MCV MCH MCHC RDW Plt Count MPV Total Counted Neutrophils % Neutrophils % (Manual) Band Neutrophils % Lymphocytes % Lymphocytes % (Manual) Monocytes % Monocytes % (Manual) Eosinophils % Eosinophils % (Manual) Basophils % Basophils % (Manual) Myelocytes % (Man) Promyelocytes % (Man) Blast Cells % (Manual) Nucleated RBC % Metamyelocytes Hypochromia Toxic Granulation Dohle Bodies Platelet Estimate Platelet Comment Polychromasia Poikilocytosis Basophilic Stippling Anisocytosis Microcytosis Macrocytosis Spherocytes Sickle Cells Target Cells Tear Drop Cells Ovalocytes Stomatocytes Helmet Cells Colon-Wisdom Bodies Advance Rings [place] Cells Acanthocytes (Spur) Rouleaux Fragmented RBCs Schistocytes PT with INR INR PTT (Actin FS) VBG pH POC VBG pCO2 POC VBG pO2 Mixed VBG HCO3 Sodium Potassium Chloride Carbon Dioxide Anion Gap BUN Creatinine Creat Clearance w eGFR Random Glucose Hemoglobin A1c % Lactic Acid 1.1 Calcium Phosphorus Magnesium Total Bilirubin AST ALT Alkaline Phosphatase Troponin I Total Protein Albumin Triglycerides Cholesterol Total LDL Cholesterol HDL Cholesterol Urine Color Dkyellow Dkyellow Urine Appearance Slcloudy Slcloudy Urine pH 5.0 5.0 Ur Specific [place] 1.026 1.026 Urine Protein 1+ H 1+ H Urine Glucose (UA) 2+ H 2+ H Urine Ketones Trace H Trace H Urine Blood 1+ H 1+ H Urine Nitrite Positive Positive Urine Bilirubin Negative Negative Urine Urobilinogen Negative Negative Ur Leukocyte Esterase 2+ H 2+ H Urine WBC (Auto) 69 74 Urine RBC (Auto) 8 6 Ur Epithelial Cells Rare Rare Urine Bacteria Rare Rare Urine Mucus Rare Rare 12/23/17 12/23/17 12/23/17 07:17 07:17 07:17 WBC 11.0 H RBC 3.77 L Hgb 12.0 D Hct 35.5 MCV 94.1 MCH 31.8 MCHC 33.8 RDW 13.9 Plt Count 153 MPV 8.7 Total Counted Neutrophils % 81.1 D Neutrophils % (Manual) Band Neutrophils % Lymphocytes % 9.4 D Lymphocytes % (Manual) Monocytes % 9.2 Monocytes % (Manual) Eosinophils % 0.3 Eosinophils % (Manual) Basophils % 0.0 Basophils % (Manual) Myelocytes % (Man) Promyelocytes % (Man) Blast Cells % (Manual) Nucleated RBC % Metamyelocytes Hypochromia Toxic Granulation Dohle Bodies Platelet Estimate Platelet Comment Polychromasia Poikilocytosis Basophilic Stippling Anisocytosis Microcytosis Macrocytosis Spherocytes Sickle Cells Target Cells Tear Drop Cells Ovalocytes Stomatocytes Helmet Cells Colon-Wisdom Bodies Advance Rings Elisha Cells Acanthocytes (Spur) Rouleaux Fragmented RBCs Schistocytes PT with INR 17.10 H INR 1.51 H PTT (Actin FS) VBG pH POC VBG pCO2 POC VBG pO2 Mixed VBG HCO3 Sodium 140 Potassium 4.5 Chloride 107 Carbon Dioxide 27 Anion Gap 6 L BUN 12 D Creatinine 0.8 D Creat Clearance w eGFR Random Glucose 127 H Hemoglobin A1c % Lactic Acid Calcium 8.0 L Phosphorus 2.7 Magnesium 1.9 Total Bilirubin AST ALT Alkaline Phosphatase Troponin I Total Protein Albumin Triglycerides Cholesterol Total LDL Cholesterol HDL Cholesterol Urine Color Urine Appearance Urine pH Ur Specific [place] Urine Protein Urine Glucose (UA) Urine Ketones Urine Blood Urine Nitrite Urine Bilirubin Urine Urobilinogen Ur Leukocyte Esterase Urine WBC (Auto) Urine RBC (Auto) Ur Epithelial Cells Urine Bacteria Urine Mucus 12/24/17 12/24/17 12/24/17 06:00 06:00 06:00 WBC 5.6 D RBC 4.07 Hgb 12.9 Hct 37.8 MCV 92.9 MCH 31.8 MCHC 34.2 RDW 13.8 Plt Count 168 MPV 9.4 Total Counted Neutrophils % No Result Required. Neutrophils % (Manual) 51.0 D Band Neutrophils % 0.0 Lymphocytes % No Result Required. Lymphocytes % (Manual) 26.5 D Monocytes % Monocytes % (Manual) 12 H D Eosinophils % Eosinophils % (Manual) 1.0 Basophils % Basophils % (Manual) 0.0 Myelocytes % (Man) 0 Promyelocytes % (Man) 0 Blast Cells % (Manual) 0 Nucleated RBC % 0 Metamyelocytes 0 Hypochromia 0 Toxic Granulation 0 Dohle Bodies 0 Platelet Estimate Normal Platelet Comment Polychromasia 0 Poikilocytosis 0 Basophilic Stippling 0 Anisocytosis 0 Microcytosis 0 Macrocytosis 0 Spherocytes 0 Sickle Cells 0 Target Cells 0 Tear Drop Cells 0 Ovalocytes 0 Stomatocytes 0 Helmet Cells 0 Colon-Wisdom Bodies 0 Advance Rings 0 Elisha Cells 0 Acanthocytes (Spur) 0 Rouleaux 0 Fragmented RBCs 0 Schistocytes 0 PT with INR 14.40 H INR 1.27 H PTT (Actin FS) VBG pH POC VBG pCO2 POC VBG pO2 Mixed VBG HCO3 Sodium 142 Potassium 4.4 Chloride 106 Carbon Dioxide 28 Anion Gap 8 BUN 9 D Creatinine 0.8 Creat Clearance w eGFR > 60 Random Glucose 122 H Hemoglobin A1c % Lactic Acid Calcium 8.5 Phosphorus Magnesium Total Bilirubin 0.3 D AST 42 H D ALT 46 D Alkaline Phosphatase 66 D Troponin I Total Protein 6.7 Albumin 3.2 L Triglycerides Cholesterol Total LDL Cholesterol HDL Cholesterol Urine Color Urine Appearance Urine pH Ur Specific [place] Urine Protein Urine Glucose (UA) Urine Ketones Urine Blood Urine Nitrite Urine Bilirubin Urine Urobilinogen Ur Leukocyte Esterase Urine WBC (Auto) Urine RBC (Auto) Ur Epithelial Cells Urine Bacteria Urine Mucus 12/25/17 12/25/17 12/25/17 06:30 07:30 07:30 WBC 4.3 RBC 4.03 Hgb 12.9 Hct 37.7 MCV 93.5 MCH 32.0 MCHC 34.2 RDW 13.5 Plt Count 184 MPV 9.3 Total Counted Neutrophils % 47.3 D Neutrophils % (Manual) Band Neutrophils % Lymphocytes % 33.1 D Lymphocytes % (Manual) Monocytes % 17.2 H D Monocytes % (Manual) Eosinophils % 2.0 D Eosinophils % (Manual) Basophils % 0.4 D Basophils % (Manual) Myelocytes % (Man) Promyelocytes % (Man) Blast Cells % (Manual) Nucleated RBC % Metamyelocytes Hypochromia Toxic Granulation Dohle Bodies Platelet Estimate Platelet Comment Polychromasia Poikilocytosis Basophilic Stippling Anisocytosis Microcytosis Macrocytosis Spherocytes Sickle Cells Target Cells Tear Drop Cells Ovalocytes Stomatocytes Helmet Cells Colon-Wisdom Bodies Advance Rings [place] Cells Acanthocytes (Spur) Rouleaux Fragmented RBCs Schistocytes PT with INR INR PTT (Actin FS) VBG pH POC VBG pCO2 POC VBG pO2 Mixed VBG HCO3 Sodium Potassium Chloride Carbon Dioxide Anion Gap BUN Creatinine Creat Clearance w eGFR Random Glucose Hemoglobin A1c % 6.5 H Lactic Acid Calcium Phosphorus Magnesium Total Bilirubin AST ALT Alkaline Phosphatase Troponin I Total Protein Albumin Triglycerides 156 Cholesterol 135 Total LDL Cholesterol 83 HDL Cholesterol 33 L Urine Color Urine Appearance Urine pH Ur Specific [place] Urine Protein Urine Glucose (UA) Urine Ketones Urine Blood Urine Nitrite Urine Bilirubin Urine Urobilinogen Ur Leukocyte Esterase Urine WBC (Auto) Urine RBC (Auto) Ur Epithelial Cells Urine Bacteria Urine Mucus Microbiology 12/22/17 17:29 Blood - Peripheral Venous Blood Culture - Preliminary NO GROWTH OBTAINED AFTER 72 HOURS, INCUBATION TO CONTINUE FOR 2 DAYS. 12/22/17 19:19 Urine - Urine Clean Catch Urine Culture - Final Escherichia Coli 12/22/17 17:29 Blood - Peripheral Venous Blood Culture - Final Escherichia Coli 12/22/17 21:52 Urine - Urine Clean Catch Urine Culture - Preliminary Escherichia Coli 12/22/17 18:53 Nasopharyngeal Swab Influenza Types A,B Antigen (MIKAYLA) - Final 12/22/17 18:53 Nasopharyngeal Swab - Final HOSPITAL COURSE: Date of Admission:12/23/17 Date of Discharge: 12/26/17 Minutes to complete discharge: 40 Discharge Summary Reason For Visit: URINARY TRACT INFECTION,FEVER Current Active Problems Fever (Acute) Gram-negative bacteremia (Acute) UTI (urinary tract infection) (Acute) Hospital Course: Patient was placed on ceftriaxone, his urine cultures and blood cultures 1 showed E. Coli resitant to bactrim/augmentin/ampicillin, otherwise sensitive. He had no fevers or leucocytosis for more > 72 hours during his stay. His repeat blood cultures have been negative at 24 hours and he is informed that he will be notified if concerns. Had renal ultrasound that was non concerning but bladder ultrasound that showed findings suggestive of cystitis and enlarged prostate. He was placed on flomax and advised outpatient urology follow up. He also had mild INR elevation 1.5 that improved and minimal AST elevation. He had abdominal ultrasound showing hepatomegaly with fatty liver and gall bladder polyp and he is advised outpatient follow up. He had prior h/o atrial fibrillation, lost to follow up and was resumed on his ASA. Additional agents were not indicated and he was in sinus rhythm. Condition: Stable - Instructions Diet, Activity, Other Instructions: You were admitted with urine infection with positive infection in the blood. You were placed on antibiotics and will be finishing a 14 day course. You also had bladder ultrasound that showed enlarged prostate, you are started on new medication Flomax, take it at night for now, if you experience new dizziness, notify your doctor. You also had belly ultrasound that showed fatty liver and polyp in gallbadder and will need outpatient follow up with doctor. Your repeat blood cultures are negative at 24 hours. However the results can take from 48 hours to 5 days. Currently they are negative but if any concerns, you will be notified, please ensure we have your cellphone or a directly reachable phone number on file. You can have your regular doctor follow up on final results. Take the antibiotic levaquin 500 mg orally daily for additional 10 days starting tomorrow. last dose of antibitoc 01/05/2018. Call 911 or come to ED if any new fevers, chills, urinary symptoms, weakness, dizziness, inability to urinate or new concerns. Referrals: Marco Sifuentes MD [Staff Physician] - 1 Week Disposition: HOME - Home Medications Comprehensive Discharge Medication List: Ambulatory Orders Aspirin Coated [Ecotrin -] 81 mg PO DAILY tablet.ec 12/26/17 Tamsulosin HCl [Flomax -] 0.4 mg PO HS #30 cap.er.24h 12/26/17 levoFLOXacin [Levaquin -] 500 mg PO DAILY #10 tablet 12/26/17 This patient is new to me today: No Emergency Visit: No Critical Care patient: No - Discharge Referral Referred to [facility] No
[2017-12-26] MEDS ORDERED: PT OWN MED DRAWER 7, Y5N ONE (09:15)
[2017-12-26] MEDS: ASPIRIN COATED 81 MG TABLET.EC PO SCH (09:17)
[2017-12-26] MEDS: CEFTRIAXONE 2 GM in DEXTROSE 5%-WATER - 100 ML IVPB SCH (09:17)
[2017-12-26] MEDS: ENOXAPARIN NA (PORCINE) 40 MG/0.4 ML DISP.SYRIN SQ SCH (09:18)
[2017-12-26 10:41] VITALS: BP 146/65; PULSE 77; TEMP 98.9
--- NOTE | 2017-12-26 10:43 | CON.GU ---
Consult Consult Specialty:: Referred by:: medicine Reason for Consultation:: BPH UTI - History of Present Illness Chief Complaint: BPH UTI History of Present Illness: 57 year old male with previous history of BPH but not seen in ten years is admitted with UTI. Imaging confirms BPH with incomplete bladder emptying. He is responding well to antibiotics - History Source History Provided By: Patient - Past Medical History Cardio/Vascular: Yes: AFIB ( ? New onset), Other (Post open heart surgery "to patch a hole" - suggest ASD repair) Renal/: Yes: BPH, UTI - Past Surgical History Past Surgical History: Yes: Appendectomy - Alcohol/Substance Use Hx Alcohol Use: No History of Substance Use: reports: None - Smoking History Smoking history: Never smoked Have you smoked in the past 12 months: No Home Medications - Allergies Allergies/Adverse Reactions: Allergies Allergy/AdvReac Type Severity Reaction Status Date / Time No Known Allergies Allergy Verified 12/22/17 16:43 - Home Medications Home Medications: Ambulatory Orders Aspirin Coated [Ecotrin -] 81 mg PO DAILY tablet.ec 12/26/17 Tamsulosin HCl [Flomax -] 0.4 mg PO HS #30 cap.er.24h 12/26/17 levoFLOXacin [Levaquin -] 500 mg PO DAILY #10 tablet 12/26/17 Family Disease History - Family Disease History Family Disease History: Heart Disease: Father Review of Systems - Review of Systems Genitourinary: reports: Burning, Dysuria, Frequency, Urgency Physical Exam- Vital Signs: Vital Signs Temperature 98.5 F 12/26/17 06:00 Pulse Rate 73 12/26/17 06:00 Respiratory Rate 20 12/26/17 09:00 Blood Pressure 126/73 12/26/17 06:00 O2 Sat by Pulse Oximetry (%) 98 12/26/17 09:00 Renal/: No: Bladder Distention, CVA Tenderness - Left, CVA Tenderness - Right , Jessica Present, Hematuria Kidneys: No: Flank Pain Left, FLank Pain Right Pelvis: Yes: Bladder Non Palpable Labs: CBC, BMP 12/25/17 07:30 12/24/17 06:00 Problem List - Problems (1) Benign localized hyperplasia of prostate with urinary obstruction Assessment/Plan: recommend to complete course of antibiotics and to follow up in office for management of BPH Code(s): N40.1 - BENIGN PROSTATIC HYPERPLASIA WITH LOWER URINARY TRACT SYMP; N13.8 - OTHER OBSTRUCTIVE AND REFLUX UROPATHY
== END 2017-12-26 11:50 | disposition home or self-care (01) | DRG 872 ==
LOC: JER 16:27 → JERBED 12-23 02:02 → J8W 12-23 14:14
PROVIDERS: ADMIT Internal Medicine; ATTEND Hospitalist
DX: A41.9 Sepsis, unspecified organism (principal); N30.90 Cystitis, unspecified without hematuria; B96.29 Other Escherichia coli [E. coli] as the cause of diseases classified elsewhere; I25.10 Atherosclerotic heart disease of native coronary artery without angina pectoris; I48.0 Paroxysmal atrial fibrillation; N40.0 Benign prostatic hyperplasia without lower urinary tract symptoms
CPT/HCPCS: 36415; 71045-TC-FY; 76700-TC; 76775-TC; 76856-TC; 80048; 80053; 80061; 81003; 81015; 82803; 83036; 83605; 83721; 83735; 84100; 84484; 85025; 85027; 85610; 85730; 87040; 87086; 87186; 87804; 93005; 93010; 99285-25; J7030

== ENCOUNTER 2021-04-29 15:52 | Emergency (ER) | payer OTHER ==
[2021-04-29 16:08] VITALS: BP 158/89; PULSE 83; BMI 28.8
== END 2021-04-29 17:53 | disposition home or self-care (01) ==
LOC: JERFT 15:52
PROC: 0H9QXZZ Drainage of Finger Nail, External Approach (ICD-10-PCS; principal; 2021-04-29)
DX: S60.111A Contusion of right thumb with damage to nail, initial encounter (principal); W23.1XXA Caught, crushed, jammed, or pinched between stationary objects, initial encounter
CPT/HCPCS: 73140-TC-RT-FY; 99283-25